=== PATIENT | female | born 1985 | race Caucasian/White ===

== ENCOUNTER 2023-11-30 19:56 | Emergency (ER) | payer OTHER, SELFPAY ==
--- NOTE | ~2023-11-30 | CT_ITS ---
EXAMINATION: CT HEAD WITHOUT CONTRAST CT FACIAL BONES WITHOUT CONTRAST CLINICAL INFORMATION: Left-sided headache. Left-sided facial pain. COMPARISON: None. TECHNIQUE: Imaging was performed from the skull base to vertex without intravenous administration of contrast. In addition, helical noncontrast CT imaging was acquired through the facial bones and source images were reviewed along with axial reconstructions and sagittal and coronal MPRs. [This CT examination was performed using dose optimization techniques as appropriate, variously including the following: *Automated exposure control *Adjustment of mA and/or kV according to patient size (this includes techniques or standardized protocols for targeted exams where dose is matched to indication/reason for exam; i.e. extremities or head) *Use of iterative reconstruction technique] DLP: 1087 mGy-cm FINDINGS: HEAD: No intracranial mass, hemorrhage, or midline shift is visualized. The ventricles and sulci are normal. No extra-axial collections are identified. FACIAL BONES: There is no evidence of an acute facial bone fracture. The paranasal sinuses are well aerated. The orbits are unremarkable in appearance. CT/CT facial bones wo IV con IMPRESSION: No acute intracranial process or discrete facial bone fracture. Electronically signed by: Darryl Walker MD 11/30/2023 10:07 PM EDT
--- NOTE | ~2023-11-30 | CT_ITS ---
EXAMINATION: CT HEAD WITHOUT CONTRAST CT FACIAL BONES WITHOUT CONTRAST CLINICAL INFORMATION: Left-sided headache. Left-sided facial pain. COMPARISON: None. TECHNIQUE: Imaging was performed from the skull base to vertex without intravenous administration of contrast. In addition, helical noncontrast CT imaging was acquired through the facial bones and source images were reviewed along with axial reconstructions and sagittal and coronal MPRs. [This CT examination was performed using dose optimization techniques as appropriate, variously including the following: *Automated exposure control *Adjustment of mA and/or kV according to patient size (this includes techniques or standardized protocols for targeted exams where dose is matched to indication/reason for exam; i.e. extremities or head) *Use of iterative reconstruction technique] DLP: 1087 mGy-cm FINDINGS: HEAD: No intracranial mass, hemorrhage, or midline shift is visualized. The ventricles and sulci are normal. No extra-axial collections are identified. FACIAL BONES: There is no evidence of an acute facial bone fracture. The paranasal sinuses are well aerated. The orbits are unremarkable in appearance. CT/CT head/brain wo IV con IMPRESSION: No acute intracranial process or discrete facial bone fracture. Electronically signed by: Darryl Walker MD 11/30/2023 10:07 PM EDT
[2023-11-30 20:01] VITALS: BP 152/104; PULSE 88; RESP 18; TEMP 36.6; O2SAT 97; BMI 35.4
--- NOTE | 2023-11-30 20:04 | ED_ITS ---
HPI - General Adult General Chief complaint: Headache Stated complaint: headache, migraine meds not working Time Seen by Provider: 11/30/23 21:47 Source: patient Mode of arrival: ambulatory Limitations: no limitations History of Present Illness ED Provider: Dr. Nahomi Trujillo HPI narrative: patient comes to the emergency room complaining of a migraine headache. Patient was diagnosed today. Patient's PCP prescribed the patient Imitrex. Patient took 1 tablet at 16:30, then a 2nd 1 at 18:30. Patient states that she did not get any relief. Patient states that she has left-sided headache, severe photophobia, nausea, no vomiting, and numbness tingling on the left side of the face. Patient denies any neurological deficits, no loss of strength. Related Data Previous Rx's ?Medication ?Instructions ?Recorded ketorolac 10 mg tablet 10 mg PO Q8H PRN pain #10 tabs 11/30/23 metoclopramide HCl 5 mg tablet 5 mg PO . t.i.d. PRN nausea and 11/30/23 vomiting #10 tabs Allergies Allergy/AdvReac Type Severity Reaction Status Date / Time From Phenergan AdvReac Unknown AGITATION, Uncoded 11/30/23 20:01 ANXIETY Review of Systems 2 Review of Systems: Constitutional : No Weight loss, No Fever, No Chills, No Night Sweats, No Fatigue, No Malaise ENT/Mouth : No Hearing loss, No Ear Pain, No Nasal Congestion, No Sinus Pain, No Hoarseness, No sore throat, No Rhinorrhea, No Swallowing Difficulty Eyes: complaining of photophobia,No Eye Pain, No Swelling, No Redness, No Foreign Body, No Discharge, No Vision Changes Cardiovascular : No Chest Pain, No SOB, No Dyspnea on Exertion, No Orthopnea, No Edema, No Palpitations Respiratory : No Cough, No Sputum, No Wheezing, No Smoke Exposure, No Dyspnea Gastrointestinal : complaining ofNausea, No Vomiting, No Diarrhea, No Constipation, No abdominal Pain, No Hematochezia, No Melena Genitourinary : no irregular bleeding, No Dysuria, No Urinary Frequency, No Hematuria, No Urinary Incontinence, No Urgency, No Flank Pain, No Urinary Flow Changes, No Hesitancy Musculoskeletal : No joint pain, No Myalgias, No Joint Swelling Skin : No Skin Lesions, No rash Neuro : No Weakness, No Numbness, complaining of left-sided paresthesias, No Loss of Consciousness, No Dizziness, Complaining of headache Psych : No Anxiety/Panic, No Depression, No SI/HI/AH/VH, No Social Issues, Heme/Lymph: No Bruising, No Bleeding,No Lymphadenopathy Endocrine : No Polyuria, No Polydipsia, No Temperature Intolerance [facility] Past Medical History Medical History (Updated 11/30/23 @ 23:00 by Nahomi Trujillo MD) Migraines Social History Social History Smoked in Last 30 Days: No Use of substances other than those prescribed or required for medical reasons: No Advance Directives: No Advance Directives Information Provided: No Do you have a plan to hurt others: No Plan Physical Exam ED Vital Signs: Vital Signs - 24 hr 11/30/23 20:01 Temperature 97.8 F Pulse Rate 88 Respiratory Rate 18 Blood Pressure 152/104 H Pulse Oximetry 97 Oxygen Delivery Method Room Air BMI result Body Mass Index 35.4 Const Other: Appearance: Alert. Oriented X3. No acute distress. looks uncomfortable Eyes: Pupils equal, round and reactive to light. patient has photophobia ENT: Pharynx normal. Neck: Normal inspection. Neck supple. No lymph nodes noted. No crepitus CVS: Normal heart rate and rhythm. Pulses normal. Normal S1 and S2 Respiratory: No respiratory distress. Breath sounds normal. No Wheezing. No rales Abdomen: Soft and nontender. No rigidity. No distention. Skin: Skin warm and dry. Normal skin color. Normal skin turgor. Extremities: No lower extremity edema. No Lacerations. No Rash Neuro: Oriented X 3. No motor deficit. No sensory deficit. Moving all extremities. No slurred speech. CN 2 through 12 grossly intact Psych: calm, cooperative, normal affect Course Course Course Narrative: This is a Rapid Medical Examination (RME) performed by Calvin Mosqueda PA-C in triage. Full HPI, ROS, assessment and treatment plan per primary provider in the Main ED. 38 yo female here for eval of left sided headache and left facial pain beginning yesterday morning. admits the left side of her face feels swollen. now has pain/ tingling down her left arm. was evaluated by PCP today today and prescribed imitrex. took first dose at 1630 and a second dose at 1830 without improvement. + no facial droop. No slurred speech. No pronator drift. ttp over left maxillary sinus. Plan: labs, viral serology, cts ordered Medications Administered Discontinued Medications Generic Name Dose Route Start Last Admin Trade Name Bonny PRN Reason Stop Dose Admin Diphenhydramine HCl 25 mg 11/30/23 21:51 11/30/23 22:18 Diphenhydramine Hcl 50 Mg/Ml Vial IVPUSH 11/30/23 21:52 25 mg ONCE ONE Administration Sodium Chloride 1,000 mls @ 999 mls/hr 11/30/23 21:51 11/30/23 22:17 Ns IVCONT 11/30/23 22:51 999 mls/hr .Q1H1M ONE Administration Ketorolac Tromethamine 30 mg 11/30/23 21:51 11/30/23 22:16 Ketorolac Tromethamine 30 Mg/Ml Vial IVPUSH 11/30/23 21:52 30 mg ONCE ONE Administration Metoclopramide HCl 10 mg 11/30/23 21:51 11/30/23 22:19 Metoclopramide Hcl 10 Mg/2 Ml Vial IVPUSH 11/30/23 21:52 10 mg ONCE ONE Administration Medical Decision Making Medical Decision Making [facility] Narrative: patient receiving IV fluids, ketorolac, metoclopramide, diphenhydramine. - NIH score is 0 - my interpretation of labs, normal hematology and chemistry, serology negative for influenza RSV and COVID - CT scans ordered from triage: normal head/ brain and facial bone CT - after the above-mentioned treatment, patient states that she feels much better. Patient requesting to be discharged home Differential Diagnosis Differential Diagnoses: The differential diagnosis associated with the presentation includes ( tension headache, migraine headache) Admission/Observation Consideration of admission/observation: Escalation of care including admission/observation considered ( given patient's severity of symptoms, observation was considered) Lab Data [facility] Lab Attestation statement: I reviewed the patient's lab results. 11/30/23 21:00 11/30/23 21:00 Labs: Lab Results 11/30/23 Range/Units 21:00 WBC 9.1 (4.8-10.8) X10*3/uL RBC 4.83 (4.20-5.50) X10*6/uL Hgb 13.8 (12.0-16.0) g/dl Hct 42.7 (37.0-47.0) % MCV 88.4 (80.0-98.0) fL MCH 28.6 (27.0-33.0) pg MCHC 32.3 (31.0-35.0) g/dl RDW 12.7 (11.0-16.0) % Plt Count 386 (160-400) X10*3/uL MPV 9.3 L (9.4-12.3) fL Immature Gran % (Auto) 0.2 (0.0-0.4) % Neut % (Auto) 51.5 (45-73) % Lymph % (Auto) 36.6 (20-40) % Ponce % (Auto) 5.8 (2-11) % Eos % (Auto) 5.0 H (0-4) % Baso % (Auto) 0.9 (0-2) % Lymph # (Auto) 3.3 (1.2-4.9) X10*3/uL Ponce # (Auto) 0.5 (0.1-1.2) X10*3/uL Eos # (Auto) 0.5 H (0.0-0.4) X10*3/uL Baso # (Auto) 0.1 (0.0-0.2) X10*3/uL Abs Immat Gran (auto) 0.02 (0.00-0.03) X10*3/uL Absolute Neuts (auto) 4.7 (2.0-8.3) x10*3/uL Absolute Nucleated RBC 0.000 (0.0-0.012) X10*3/uL Nucleated RBC % (auto) 0.0 (0.0-0.2) /100WBC Sodium 140 (135-145) mmol/L Potassium 3.8 (3.3-5.1) mmol/L Chloride 107 (96-108) mmol/L Carbon Dioxide 27 (22-29) mmol/L Anion Gap 10 L (12-20) BUN 10 (9-16) mg/dL Creatinine 0.78 (0.5-1.4) mg/dL Estim Creat Clear Calc 99.6 Estimated GFR > 60 Random Glucose 99 (60-115) mg/dL Calcium 9.8 (8.4-10.2) mg/dL Magnesium 2.1 (1.6-2.6) mg/dL Total Bilirubin 0.2 (0.0-1.0) mg/dL AST 34 H (5-31) U/L ALT 51 H (0-31) U/L Alkaline Phosphatase 137 H (39-117) U/L Total Protein 7.5 (6.5-8.0) g/dL Albumin 4.0 (3.5-5.0) g/dL Beta HCG, Quant < 2 mIU/mL Influenza Type A (PCR) NEGATIVE (Negative) Influenza Type B (PCR) NEGATIVE (Negative) RSV RNA Qual (PCR) NEGATIVE (Negative) SARS-CoV-2 RNA (RT-PCR) NEGATIVE (Negative) Independent Interpretation I performed an independent interpretation of an: CT Scan Radiology Impression Discussion of test interpretation with radiology: I have reviewed the radiologist's reading. Radiologist Impression: HEAD: No intracranial mass, hemorrhage, or midline shift is visualized. The ventricles and sulci are normal. No extra-axial collections are identified. FACIAL BONES: There is no evidence of an acute facial bone fracture. The paranasal sinuses are well aerated. The orbits are unremarkable in appearance. CT/CT head/brain wo IV con IMPRESSION: No acute intracranial process or discrete facial bone fracture. Critical Care Time Critical Care Time Critical Care Time: Yes Total Critical Care Time: 30 Attestation: I have personally provided critical care time. Time includes review of lab data, radiology results, discussion with consultants, and monitoring for potential decompensation. Intervention performed as documented. Discharge Plan Discharge Clinical Impression: Migraine Patient Disposition: Home, Self-Care Instructions: Migraine Headache (ED) Additional Instructions: Please follow-up with your primary care physician tomorrow. If you have any worsening or new symptoms, please return to the emergency room or call 911 Prescriptions: New ketorolac 10 mg tablet 10 mg PO Q8H PRN (Reason: pain) Qty: 10 0RF Rx Instructions: maximum total duration of 5 days from all oral, intranasal, or parenteral formulations metoclopramide HCl 5 mg tablet 5 mg PO . t.i.d. PRN (Reason: nausea and vomiting) Qty: 10 0RF Rx Instructions: take together with ketorolac p.r.n. migraine Stand Alone Forms: Work/School Release Print Language: Kazakh
[2023-11-30 21:05] LABS: MANUAL DIFF FLAG NO
[2023-11-30 21:15] LABS: Basophils Absolute Auto 0.1 X10*3/uL (0.0-0.2); Basophils Percent Auto 0.9 % (0-2); Eosinophils Absolute Auto 0.5 X10*3/uL (0.0-0.4); Hematocrit 42.7 % (37.0-47.0); Hemoglobin 13.8 g/dl (12.0-16.0); Imm Gran Abs Auto 0.02 X10*3/uL (0.00-0.03); Imm Gran Pct Auto 0.2 % (0.0-0.4); Lymphocytes Absolute Auto 3.3 X10*3/uL (1.2-4.9); Lymphocytes Percent Auto 36.6 % (20-40); Mean Corpuscular HGB Conc 32.3 g/dl (31.0-35.0); Mean Corpuscular Hemoglobin 28.6 pg (27.0-33.0); Mean Corpuscular Volume 88.4 fL (80.0-98.0); Mean Platelet Volume 9.3 fL (9.4-12.3); Monocytes Absolute Auto 0.5 X10*3/uL (0.1-1.2); Monocytes Percent Auto 5.8 % (2-11); Neutrophils Absolute Auto 4.7 x10*3/uL (2.0-8.3); Neutrophils Percent Auto 51.5 % (45-73); Platelet Count 386 X10*3/uL (160-400); Red Blood Count 4.83 X10*6/uL (4.20-5.50); Red Cell Distribution Width 12.7 % (11.0-16.0); White Blood Count 9.1 X10*3/uL (4.8-10.8)
[2023-11-30 21:30] LABS: Alanine Aminotransferase 51 U/L (0-31); Alkaline Phosphatase 137 U/L (39-117); Anion Gap 10 (12-20); Aspartate Amino Transferase 34 U/L (5-31); Bilirubin Total 0.2 mg/dL (0.0-1.0); Blood Urea Nitrogen 10 mg/dL (9-16); Calcium 9.8 mg/dL (8.4-10.2); Carbon Dioxide 27 mmol/L (22-29); Chloride 107 mmol/L (96-108); Creatinine Clr Calc Pharmacy 99.6; Estimated Glomerular Filt Rate > 60; Glucose Random 99 mg/dL (60-115); Magnesium 2.1 mg/dL (1.6-2.6); Potassium 3.8 mmol/L (3.3-5.1); Sodium 140 mmol/L (135-145); Total Protein 7.5 g/dL (6.5-8.0)
[2023-11-30 21:38] LABS: HCG Quantitative < 2 mIU/mL
--- NOTE | 2023-11-30 21:38 | PC.NURSE ---
pt from nicobycherelle care of pt at this time
[2023-11-30 21:48] LABS: Influenza A PCR NEGATIVE (Negative); Influenza B PCR NEGATIVE (Negative); Resp Syncy Virus RNA Qual PCR NEGATIVE (Negative); SARS COV2 PCR INHOUSE NEGATIVE (Negative)
[2023-11-30] MEDS: Ketorolac Tromethamine 30 MG/ML VIAL IVPUSH (22:16)
[2023-11-30] MEDS: 0.9 % Sodium Chloride 1,000 ML 999 ML IVCONT (22:17)
[2023-11-30] MEDS: diphenhydrAMINE HCL 50 MG/ML VIAL 25 MG IVPUSH (22:18)
[2023-11-30] MEDS: Metoclopramide HCl 10 MG/2 ML VIAL IVPUSH (22:19)
--- NOTE | 2023-11-30 23:05 | PC.NURSE ---
pt feeling better, pt up and amb slowly and steadily to the bathroom, with family member
[2023-11-30 23:12] VITALS: BP 128/83; PULSE 76; RESP 16; TEMP 37.1; O2SAT 97
== END 2023-11-30 23:13 | disposition home or self-care (01) ==
PROVIDERS: Physician Assistant Medical; Emergency Provider Emergency Medicine
DX: G43.909 Migraine, unspecified, not intractable, without status migrainosus (principal); H53.142 Visual discomfort, left eye; R11.0 Nausea; R20.2 Paresthesia of skin; Z79.899 Other long term (current) drug therapy; Z03.818 Encounter for observation for suspected exposure to other biological agents ruled out
CPT/HCPCS: 0241U; 36415; 70450; 70486; 80053; 83735; 84702; 85025; 96361; 96374; 96375; 99284; J1200; J1885; J2765

== ENCOUNTER 2025-01-24 13:56 | Outpatient (AMB) | payer OTHER, SELFPAY ==
--- NOTE | 2025-01-24 13:59 | MHC.PC.OV ---
Vital Signs 01/24/25 14:04 Height 5 ft 3.58 in Weight 201 lb 2 oz BMI 35.0 BP 152/86 H Blood Pressure Location Rt brachial Position Sitting Respiration 16 Pulse 96 Pulse Source Pulse Oximeter Temp 98.4 F Temp Source Oral Pulse Oximetry (%) 98 Oxygen Delivery Method Room Air Intake Visit Reasons: blood pressure, bump on left arm [employer] Administrative Technician Required: No Accompanied by: Self / Same As Patient Allergies From Phenergan Adverse Reaction (Unknown, Uncoded 11/30/23 20:01) AGITATION, ANXIETY Medication List - Last Reconciled 01/24/25 by Demian Noriega MD amoxicillin-pot clavulanate 875-125 mg 1 tab PO BID ketorolac 10 mg PO Q8H PRN lorazepam mg PO metoclopramide HCl 5 mg PO . t.i.d. PRN metoprolol succinate ER 25 mg PO DAILY prednisone 40 mg PO DAILY Tobacco use date assessed: 01/24/25 Dental Screening Dental Screen Date: 01/24/25 Did you have a dental visit in the last 12 months?: No Did you have a dental problem in the last 6 months where you did not have access to dental care?: No Was dental information given to patient?: Patient has dentist HPI HPI Comments History of Present Illness Details History of Present Illness The patient is a 39-year-old female presenting with concerns about hypertension and a lump on the left arm. Essential Hypertension: The patient has a history of hypertension, which has been monitored at home with readings sometimes reaching 140/106 mmHg. She is currently taking metoprolol, which was prescribed for both hypertension and migraine management. There is a family history of hypertension, with her father having experienced a stroke. Lump on Left Arm: The patient reports a recurrent lump on her left arm that is painful and causes discomfort, particularly when the arm is not kept straight. The lump has been present intermittently, with the most recent episode causing significant pain and concern. She has been using Tylenol for pain relief and has expressed a preference to avoid narcotics. Carpal Tunnel Syndrome: The patient has a history of carpal tunnel syndrome in both hands, which she suspects may be related to her current arm symptoms. Anxiety: The patient experiences anxiety, which she believes may be contributing to her elevated blood pressure readings. Medications: - Metoprolol: Taken for hypertension and migraine management - Tylenol: Used for pain relief related to the lump on the left arm Family History: - Father: History of hypertension, suspected stroke Diagnostic Results: - EKG: Normal results - Heart monitor: Normal results Past Medical History - Hypertension - Carpal Tunnel Syndrome Health Maintenance [facility] Medical History (Updated 01/24/25 @ 14:29 by Demian Noriega MD) Pain, joint, forearm Migraines Family History (Updated 01/24/25 @ 14:09 by Sean Munson MA) Father High blood pressure Mother High blood pressure Diabetes Social History Housing: House Patient Tobacco Use Status: Never used Tobacco service: No Current occupational status: employed Cognitive needs: No Hearing needs: No Vision needs: Yes (rx glasses) Questionnaire PHQ-9 Over the last 2 weeks, how often have you been bothered by any of the following problems? 1. Little interest or pleasure in doing things: not at all 2. Feeling down, depressed, or hopeless: not at all 3. Trouble falling or staying asleep, or sleeping too much: not at all 4. Feeling tired or having little energy: not at all 5. Poor appetite or overeating: not at all 6. Feeling bad about yourself - or that you are a failure or have let yourself or your family down: not at all 7. Trouble concentrating on things, such as reading the newspaper or watching television: not at all 8. Moving or speaking so slowly that other people could have noticed. Or the opposite - being so fidgety or restless that you have been moving around a lot more than usual: not at all 9. Thoughts that you would be better off or of hurting yourself in some way: not at all Total score: 0 Depression Screening Interpretation: Negative Depression Screening Done: Yes Source: Developed by Drs. Drew Flores, Anu Chapman, Roni Armando and colleagues, with an educational jose guadalupe from [employer]. Thrive Questionnaire Date Thrive assessed: 01/24/25 I am a: Patient What is your living situation today?: I have a steady place to live Within the past 12 months, did the food you bought not last and you didn't have the money to get more?: Never true Within the past 12 months, did you worry whether your food would run out before you got money to buy more?: Never true Do you have trouble paying for medicines?: No Do you have trouble getting transportation to medical appointments?: No Do you have trouble paying your heating and electricity bill?: No Do you have trouble taking care of your child, family member or friend?: No Do you have trouble with day-to-day activities such as bathing, preparing meals, shopping, managing finances, etc.?: No Are you currently unemployed and looking for a job?: No Are you interested in more education?: No Please select the resources that you would like help with: None Currently or been in a relationship where the following occur: No concerns reported THRIVE Score: 0 AUDIT C Alcohol Use Questionnaire (AUDIT-C) 1. How often do you have a drink containing alcohol?: Monthly or less 2. How many drinks containing alcohol do you have on a typical day when you are drinking?: 1 or 2 3. How often do you have six or more drinks on one occasion?: Never Total Score: 1 LEATHA-7 AMB Questionnaire LEATHA-7 Date LEATHA - 7 assessed: 01/24/25 Feeling nervous, anxious, or on edge: 0 = Not at all Not being able to stop or control worryin = Not at all Worrying too much about different things: 0 = Not at all Trouble relaxin = Not at all Being so restless that it is hard to sit still: 0 = Not at all Becoming easily annoyed or irritable: 0 = Not at all Feeling afraid as if something awful might happen: 0 = Not at all Total LEATHA-7 score (0-4 normal; 5-9 mild; 10-14 moderate; 15-21 severe): 0 Source: Developed by Drs. Drew Flores, Anu Chapman, Roni Armando and colleagues, with an educational jose guadalupe from [employer]. Review of Systems Narrative Review of Systems - Musculoskeletal: Reports intermittent, painful lump on the left arm - Cardiovascular: Reports elevated blood pressure readings at home - Neurological: Reports history of carpal tunnel syndrome - Psychiatric: Reports anxiety related to stress and family history 10-point ROS reviewed and negative except as noted in HPI Physical exam (Primary Care) Vital Signs: Last Vital Signs Temp 98.4 F 01/24/25 14:04 Pulse 96 01/24/25 14:04 Resp 16 01/24/25 14:04 BP 152/86 H 01/24/25 14:04 Pulse Ox 98 01/24/25 14:04 Oxygen Delivery Method Room Air 01/24/25 14:04 BMI result Body Mass Index 35.0 Tobacco/Smoking Status: Tobacco use Status Tobacco use date assessed 01/24/25 01/24/25 14:13 Patient Tobacco Use Status Never used Tobacco 01/24/25 14:13 PHQ-9: PHQ-9 Score PHQ-9: Total score 0 01/24/25 14:13 Depression Screening Interpretation: Negative Thrive Assessment: Date of Thrive Assessment Date Thrive assessed 01/24/25 01/24/25 14:13 Currently or been in a relationship where the following occur: No concerns reported Coding Level of Care Code New Pt Level 4 (21325) Diagnoses Pain, joint, forearm M25.539 Essential hypertension I10 Soft tissue injury T14.90XA Carpal tunnel syndrome G56.00 Assessment & Plan Assessment & Plan (1) Pain, joint, forearm: Code(s): M25.539 - Pain in unspecified wrist Category: Medical (2) Essential hypertension: Code(s): I10 - Essential (primary) hypertension (3) Soft tissue injury: Code(s): T14.90XA - Injury, unspecified, initial encounter (4) Carpal tunnel syndrome: Code(s): G56.00 - Carpal tunnel syndrome, unspecified upper limb Plan Consent Patient was informed and verbally consented to the use of an ambient scribe for clinic note documentation during this visit. Plan 1. Essential Hypertension - Continue monitoring blood pressure at home, recording readings twice daily. - Discuss potential changes in antihypertensive medication at follow-up appointment. 2. Lump On Left Arm - Apply diclofenac gel topically for pain relief. - Avoid narcotic pain medications due to patient preference. 3. Carpal Tunnel Syndrome - Consider further evaluation if symptoms persist or worsen. 4. Anxiety - Address anxiety management strategies in future visits. Discussion Notes I discussed with the patient the management of her hypertension, emphasizing the importance of regular monitoring and potential medication adjustments. We also addressed the lump on her left arm, recommending topical diclofenac gel for pain relief. I advised against the use of narcotics due to her preference and discussed the role of anxiety in her blood pressure management. Follow-up was recommended to reassess her condition and adjust treatment as necessary. Patient Instructions - Monitor blood pressure at home twice daily and record the best reading. - Apply diclofenac gel to the left arm as needed for pain relief. - Avoid using the left arm for blood pressure measurements due to pain. - Schedule a follow-up appointment to discuss blood pressure management and any ongoing symptoms. Medical Decision Making In managing this patient, I considered her history of hypertension and the presence of a painful lump on her left arm. The decision to use diclofenac gel was based on the need for a non-narcotic pain relief option. Monitoring her blood pressure at home is crucial for assessing the effectiveness of her current medication regimen. Anxiety was identified as a contributing factor to her elevated blood pressure, and future visits will address this aspect further. The goal is to achieve better blood pressure control and alleviate her arm pain without the use of narcotics. Total time spent caring for the patient today was 30 minutes. This includes time spent before the visit reviewing the chart, time spent documenting, and time spent reviewing laboratory results, diagnostic imaging, medications, performing a medically necessary evaluation, counseling on diagnoses, care coordination,
[2025-01-24 14:04] VITALS: BP 152/86; PULSE 96; RESP 16; TEMP 36.9; O2SAT 98; BMI 35.0
--- OUTSIDE RECORDS SUMMARY | 2025-01-24 15:58 | XMS_ITS | Clinical Summary ---
Author Organization [facility] Address [address] [place] [address] Phone Care Team Providers Care Darklight Inspector Name Role Phone Portillo Lancaster Primary Care Provider [phone] Allergies Active Allergy Reactions Criticality Noted Date Comments Phenergan Dm Palpitations 06/13/2013 Promethazine 08/31/2024 Shrimp Itching 09/29/2024 Medications cholecalciferol (VITAMIN D-3) 50 mcg (2,000 unit) tabletIndicatio ns:Vitamin D deficiency Take 1 tablet (2,000 Units total) by mouth 1 (one) time each day. 90 tablet 1 09/30/2024 5 Active metoprolol succinate (TOPROL-XL) 25 mg 24 hr tablet Take 1 tablet (25 mg total) by mouth 1 (one) time each day. Do not crush or chew. 30 each 5 10/10/2024 6 Active ibuprofen (ADVIL,MOTRIN) 600 mg tablet Take 1 tablet (600 mg total) by mouth every 6 (six) hours if needed for mild pain (for pain) for up to 10 days. 30 tablet 01/13/2025 5 Active Problems Problem Noted Date Diagnosed Date Vitamin D deficiency 09/30/2024 Assessment & Plan (09/30/2024 4:28 PM EDT): She is not taking vitamin D daily. Advised to start vitamin D 2000 units daily. Labs done in April showed low vitamin D level Orders: cholecalciferol (VITAMIN D-3) 50 mcg (2,000 unit) tablet; Take 1 tablet (2,000 Units total) by mouth 1 (one) time each day. Migraine without aura and wi thout status migrainosus, not intractable 09/30/2024 Assessment & Plan (09/30/2024 4:28 PM EDT): She will resume abortive therapy with Imitrex as needed. She will also continue on Excedrin as needed. Will trial Topamax 25 mg nightly for migraine headache prophylaxis. Counseled on the possible side effects of the medication. She is referred to neurology MRI of the brain done in February is as above and within normal range. Orders: Ambulatory referral to Neurology; Future topiramate (TOPAMAX) 25 mg tablet; Take 1 tablet (25 mg total) by mouth at bedtime. SUMAtriptan (IMITREX) 50 mg tablet; Take 1 tablet (50 mg total) by mouth 1 (one) time if needed for migraine. Alkaline phosphatase elevation 01/31/2024 Nephrolithiasis 01/31/2024 Vertigo 04/20/2016 Generalized headaches 04/20/2015 Encounters Date Type Department Care Team Description 01/15/2025 Telephone Adult Medicine [address] [address] Portillo Lancaster PA 01/13/2025 9:46 PM EDT - 01/13/2025 10:54 PM EDT Emergency [facility] Emergency [address] [place] [address] Yg Rod MD Chest wall pain (Primary Dx) Discharge Disposition: Home or Self Care from Last 3 Months Immunizations Immunization Administration Dates Next Due DTP 06/08/1989, 8,08/06/1985,1985,1984 IPV Inactivated polio (Ipol) 6wks and older 06/08/1989,06/17/1987,08/06/1985,1985,1984 Influenza Quadravalent, MDCK , 0.5ml, preservative free (Flucelvax) 6mo and older 02/03/2019 Influenza Quadravalent, MDCK , 0.5ml, with preservative (Flucelvax) 6mo and older 02/21/2020,01/07/2018 Influenza Quadrivalent, 0.5m l, preservative free (Fluarix; FluLaval; Fluzone) ages 6mo and older (Afluria) 3yo and older 02/21/2020 Influenza trivalent, 0.5mL, preservative free (Fluarix; FluLaval; Fluzone) ages 6mo and older (Afluria) 3 years and older 01/24/2024 MMR, measles mumps and rubel la Live (Priorix; M-M-R II) 12mo and older 12/12/1996,01/01/1986 Td Tetanus diptheria (Tdvax) 7yo and older 06/29/1999 Tdap Tetanus diptheria acell ular pertussis (Boostrix; Adacel) 7yo and older 10/01/2012 Surgical History Surgery Date Site/Laterality Comments TUBAL LIGATION 04/03/2012 PROCEDURE: HISTORICAL TUBAL LIGATION APPENDECTOMY 04/03/2006 PROCEDURE: HISTORICAL APPENDECTOMY CHOLECYSTECTOMY 08/04/2022 PROCEDURE: HISTORICAL CHOLECYSTECTOMY; COMMENT: sobral Medical History Medical History Date Comments Alkaline phosphatase elevation D X:Alkaline phosphatase elevation Nephrolithiasis DX:Nephrolithias is History of endoscopy 02/28/2017 DX:History of endoscopy; COMMENT: dr arellano Family History Medical History Relation Name Comments Heart attack Father Frank Cochran Hypertension Father Frank Leoa Asthma Mother Jina Saurav sisters x2 Bipolar disorder Mother Jina Saurav Glaucoma Mother Jina Saurav Hypertension Mother Jina Saurav Hypertension Sister Marsha Cochran Seizures Son Derex Van Relation Name Status Comments Father Vishnu Cochran Mother Jina Saurav Sister Marsha Cochran Son Derex Vna Social History Tobacco Use Types Packs/Day Years Used Date Smoking Tobacco: Never Smokeless Tobacco: Never Tobacco Cessation:Counseling Given: Not Answered Alcohol Use Standard Drinks/Week Comments Yes 0 (1 standard drink = 0.6 oz pur e alcohol) Housing Instability Answer Date Recorde d Are you worried that in the next 2 months you may not have stable housing? No 09/30/2024 Food Access & Nutrition Answer Date Rec orded Do you have access to a vari ety of food including fruits and vegetables? Yes 09/30/2024 Access to Healthcare Answer Date Record ed Within the last 3 months, ho w many times did you visit the emergency department for your medical care? 0 09/30/2024 Health Literacy Answer Date Recorded How often do you need to hav e someone help you when you read instructions, pamphlets, or other written material from your doctor or pharmacy? Never 09/30/2024 Caregiver: How often do you need to have someone help you when you read instructions, pamphlets, or other written material from your doctor or pharmacy? Not on file 09/30/2024 Financial Risk Answer Date Recorded How hard is it for you to pa y for the very basics like food, housing, medical care, and air conditioning / heating? Not very hard 09/30/2024 Transportation Answer Date Recorded Has the lack of transportati on kept you from meetings, work, or from getting things needed for daily living? No Has the lack of transportati on kept you from medical appointments or from getting medications? No 09/30/2024 Social Isolation Answer Date Recorded How often do you feel lonely or isolated from th ose around you? Never 09/30/2024 Food Risk Answer Date Recorded Within the past 12 months we worried whether our food would run out before we got money to buy more. Never true 09/30/2024 Within the past 12 months th e food we bought just didn't last and we didn't have money to get more. Never true 09/30/2024 Dependent Care Answer Date Recorded Do you need help finding or paying for care for your loved ones. For example, child care center administrator or elderly care for an older adult? No 09/30/2024 Education Answer Date Recorded Do you think completing more education or training, like finishing a GED, going to college, or learning a trade, would be helpful for you? Yes 09/30/2024 Employment and Income Answer Date Recor ded During the last four weeks, have you been actively looking for work? No 09/30/2024 Living Situation Answer Date Recorded What is your living situation? 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 Para Term AB IAB SAB Ectopic Multiple Livin g Live Births 5 4 4 3 4 Date Outcome GA Total Labor Labor/2nd/3rd Weight Sex Type Anes PTL Norma A1 A5 Name Clin Term Vag-S pont Living Term Vag-S pont Living Term Vag-S pont Living Term Vag-S pont Last Filed Vital Signs Vital Sign Reading Time Taken Comments Blood Pressure 138/100 01/13/2025 9:24 PM EDT Pulse 74 01/13/2025 9:24 PM EDT Temperature 36.7 C (98.1 F) 01/13/2025 9:24 PM EDT Respiratory Rate 18 01/13/2025 9:24 PM EDT Oxygen Saturation 100% 01/13/2025 9:24 PM EDT Inhaled Oxygen Concentration - - Weight 88 kg (194 lb) 01/13/2025 4:57 PM EDT Height 157.5 cm (5' 2 ) 01/13/2025 4:57 PM EDT Body Mass Index 35.48 01/13/2025 4:57 PM EDT Plan of Treatment Upcoming Encounters Date Type Department Care Team (Late st Contact Info) Description 01/30/2025 2:00 PM EDT Office Visit Adult Medicine [facility] [address], [place] [phone] Garry Kilpatrick MD [address], [place] Health Maintenance Due Date Last Done Comments Breast Cancer Screening 1984 Hepatitis B Vaccines (1 of 3 - 19+ 3-dose series) 08/23/2003 HPV Vaccines (1 - 3-dose SCDM series) 08/23/2011 HIV Screening 03/12/2022 Hepatitis C Screening 03/12/2022 COVID-19 Vaccine ( season) 2024 07/02/2020, 06/11/2020 Influenza Vaccine (#1) 2024 , 02/21/2020, 02/21/2020, Additional history exists Cervical Cancer Screening: Pap Smear 08/31/2025 08/31/2022 Social Influencers of Health Screening 09/30/2025 09/30/2024 Cholesterol Screening (Lipid Panel) 10/18/2028 10/19/2023 RSV Immunization Adult Patients (1 - 1-dose 75+ series) 08/23/2059 IPV Vaccines Completed 06/08/1989, 06/01, 08/06/1985, Additional history exists MMR Vaccines Completed 12/12/1996, 01/01/1986 DTaP,Tdap,and Td Vaccines Discontinued 2012, 06/29/1999, 06/08/1989, Additional history exists Depression Screening Completed 09/30/2024 HIB Vaccines Aged Out No longer eligi ble based on patient's age to complete this topic Hepatitis A Vaccines Aged Out No long er eligible based on patient's age to complete this topic Meningococcal ACWY Vaccine Aged Out N o longer eligible based on patient's age to complete this topic Meningococcal B Vaccine Aged Out No l onger eligible based on patient's age to complete this topic Pneumococcal Vaccine: Pediatrics (0 to 5 Years) and At-Risk Patients (6 to 49 Years) Aged Out No longer eligible based on patient's age to complete this topic RSV Immunization Patients Under 20 months Aged Out No longer eligible based on patient's age to complete this topic Varicella Vaccines Aged Out No longer eligible based on patient's age to complete this topic Procedures Procedure Name Priority Date/Time Associated Diagnosis Comments ECG ANNOTATED 01/14/2025 TROPONIN I HIGH SENSITIVITY Timed 01/13/2025 9:52 PM EDT XR CHEST 2 VIEWS STAT 01/13/2025 9:36 PM EDT HCG, SERUM, QUALITATIVE STAT 01/13/2025 5:47 PM EDT CBC WITH AUTO DIFFERENTIAL STAT 01/13/2025 5:47 PM EDT B-TYPE NATRIURETIC PEPTIDE STAT 01/13/2025 5:47 PM EDT MAGNESIUM STAT 01/13/2025 5:47 PM EDT LIPASE STAT 01/13/2025 5:47 PM EDT COMPREHENSIVE METABOLIC PANEL STAT 01/13/2025 5:47 PM EDT CBC AND DIFFERENTIAL STAT 01/13/2025 5:47 PM EDT TROPONIN I HIGH SENSITIVITY Timed 01/13/2025 5:47 PM EDT ECG 12-LEAD STAT 01/13/2025 4:54 PM EDT PAP SMEAR Routine 08/31/2022 from Last 3 Months or Most Recently Relevant to Health Maintenance Results * ECG-Annotated (01/14/2025) us Provider Onbase ECG ORDERABLES Final Result * Troponin I high sensitivity (01/13/2025 9:52 PM EDT) Only the most recent of2 resultswithin the time period is included. High Sensitivity Troponin I 6 <=54 ng/L LAB CHEMISTRY METHOD 01/13/2025 10:43 PM EDT [facility] Blood Venous blood specimen / Unknown Venipuncture / Unknown 01/13/2025 9:52 PM EDT 01/13/2025 10:03 PM EDT Narrative [facility] - 01/13/2025 10:43 PM EDT High levels of biotin in samples may falsely decrease hsTroponin values. Use caution when interpreting hsTroponin results in patients taking biotin who exhibit renal impairment (eGFR <60) or in patients taking more than 20 mg/day of biotin. us Yg Rod MD LAB BLOOD ORDERABLES Final Result [facility] [address] [place] [address], [place] [phone] * XR Chest 2 Views (01/13/2025 9:36 PM EDT) Anatomical Region Laterality Modality Body Radiographic Venita ging 01/14/2025 8:54 AM EDT Impressions 01/14/2025 8:55 AM EDT Impression: Normal chest. Telerad PA ([id number]) -------- FINAL REPORT -------- Dictated By: Chanda Apodaca Dictated Date: 01/14/2025 08:54 ET Assigned Physician: Chanda Apodaca Reviewed and Electronically Signed By: Chanda Apodaca Signed Date: 01/14/2025 08:55 ET Workstation ID: [id number] Transcribed By: Self Edit Transcribed Date: 01/14/2025 08:54 ET Narrative 01/14/2025 8:55 AM EDT History: Chest pain. Comparison: 10/07/24 Findings: PA and lateral views. The cardiomediastinal silhouette, hilar contours and pulmonary vascularity are within normal limits. The lungs are clear. The costophrenic angles are sharp. Bones and soft tissues are unremarkable. Cholecystectomy clips are noted. Procedure Note Chanda Apodaca MD - 01/14/2025 History: Chest pain. Comparison: 10/07/24 Findings: PA and lateral views. The cardiomediastinal silhouette, hilar contours andpulmonary vascularity are within normal limits. The lungs are clear. Thecostophrenic angles are sharp. Bones and soft tissues are unremarkable. Cholecystectomy clips arenoted. IMPRESSION: Impression: Normal chest. Telerad PA ([id number]) -------- FINAL REPORT -------- Dictated By: Chanda Apodaca Dictated Date: 01/14/2025 08:54 ET Assigned Physician: Chanda Apodaca Reviewed and Electronically Signed By: Chanda Apodaca Signed Date: 01/14/2025 08:55 ET Workstation ID: [id number] Transcribed By: Self Edit Transcribed Date: 01/14/2025 08:54 ET us Yg Rod MD IMG XR PROCEDURES Final Res ult * (ABNORMAL) CBC auto differential (01/13/2025 5:47 PM EDT) [facility] WBC 9.2 4.8 - 10.8 K/mcL LAB HEMETOLOGY METHOD 01/13/2025 6:34 PM EDT [facility] RBC 4.70 3.80 - 4.80 M/mcL LAB HEMETOLOGY METHOD 01/13/2025 6:34 PM EDT [facility] Hemoglobin 13.6 11.5 - 16.0 g/dL LAB HEMETOLOGY METHOD 01/13/2025 6:34 PM EDT [facility] Hematocrit 42.8 35.0 - 47.0 % LAB HEMETOLOGY METHOD 01/13/2025 6:34 PM EDT [facility] MCV 90.5 79.0 - 98.0 FL LAB HEMETOLOGY METHOD 01/13/2025 6:34 PM EDT [facility] MCH 28.8 27.0 - 32.0 pcg LAB HEMETOLOGY METHOD 01/13/2025 6:34 PM EDT [facility] MCHC 31.8(L) 32.0 - 37.0 g/dL LAB HEMETOLOGY METHOD 01/13/2025 6:34 PM EDT [facility] RDW 12.9 11.0 - 15.0 % LAB HEMETOLOGY METHOD 01/13/2025 6:34 PM EDT [facility] Platelets 388 130 - 400 K/mcL LAB HEMETOLOGY METHOD 01/13/2025 6:34 PM EDT [facility] MPV 9.4 7.0 - 11.0 FL LAB HEMETOLOGY METHOD 01/13/2025 6:34 PM EDT [facility] NRBC 0.0 <1.0 % LAB HEMETOLOGY METHOD 01/13/2025 6:34 PM EDT [facility] NRBC Absolute 0.00 <0.10 K/mcL LAB HEMETOLOGY METHOD 01/13/2025 6:34 PM EDT [facility] Neutrophils Relative 55.4 % LAB HEMETOLOGY METHOD 01/13/2025 6:34 PM EDT [facility] Lymphocytes Relative 34.7 % LAB HEMETOLOGY METHOD 01/13/2025 6:34 PM EDT [facility] Monocytes Relative 6.9 % LAB HEMETOLOGY METHOD 01/13/2025 6:34 PM EDT [facility] Eosinophils Relative 2.0 % LAB HEMETOLOGY METHOD 01/13/2025 6:34 PM [facility] Basophils Relative 0.7 % LAB HEMETOLOGY METHOD 01/13/2025 6:34 PM [facility] Immature Granulocytes Relative 0.3 % LAB HEMETOLOGY METHOD 01/13/2025 6:34 PM [facility] Neutrophils Absolute 5.10 1.50 - 7.00 K/mcL LAB HEMETOLOGY METHOD 01/13/2025 6:34 PM EDT [facility] Lymphocytes Absolute 3.19 1.00 - 5.00 K/mcL LAB HEMETOLOGY METHOD 01/13/2025 6:34 PM T [facility] Monocytes Absolute 0.63 0.20 - 1.00 K/mcL LAB HEMETOLOGY METHOD 01/13/2025 6:34 PM EDT [facility] Eosinophils Absolute 0.18 0.00 - 0.50 K/mcL LAB [facility]EM[facility]OLOGY [facility] Bas[facility] Absolute 0.06 0.00 - 0.20 K/mcL LAB HEMETOLOGY METHOD 01/13/2025 6:34 PM EDT [facility] Immature Granulocytes Absolute 0.03 0.00 - 0.03 K/mcL LAB HEMETOLOGY METHOD 01/13/2025 6:34 PM EDT [facility] Blood Venous blood specimen / Unknown Venipuncture / Unknown 01/13/2025 5:47 PM EDT 01/13/2025 6:28 PM EDT Yg Rod MD LAB BLOOD ORDERABLES Final Result [facility] [address] [place] [address], [place] [phone] * hCG, serum, qualitative (01/13/2025 5:47 PM EDT) Pathologist [facility] hCG Qual Negative Negative 01/13/2025 7:06 PM EDT [facility] Blood Venous blood specimen / Unknown Venipuncture / Unknown 01/13/2025 5:47 PM EDT 01/13/2025 6:28 PM EDT Yg Rod MD LAB BLOOD ORDERABLES Final Result Performing Organization Address [facility]/ZIP Co de Phone Number [facility] [address] [place] [address], [place] [phone] * B-type natriuretic peptide (01/13/2025 5:47 PM EDT) Pathologist [facility] BNP 2 <=100 pcg/mL LAB CHEMISTRY METHOD 01/13/2025 7:06 PM EDT [facility] Blood Venous blood specimen / Unknown Venipuncture / Unknown 01/13/2025 5:47 PM EDT 01/13/2025 6:28 PM EDT us Yg Rod MD LAB BLOOD ORDERABLES Final Result [facility] [address] [place] [address], [place] [phone] * Magnesium (01/13/2025 5:47 PM EDT) Pathologist [facility] Magnesium 2.0 1.9 - 2.6 mg/dL LAB CHEMISTRY METHOD 01/13/2025 6:57 PM EDT [facility] Blood Venous blood specimen / Unknown Venipuncture / Unknown 01/13/2025 5:47 PM EDT 01/13/2025 6:28 PM EDT Yg Rod MD LAB BLOOD ORDERABLES Final Result [facility] [address] [place] [address], [place] [phone] * Lipase (01/13/2025 5:47 PM EDT) Pathologist [facility] Lipase 58 13 - 75 unit/L LAB CHEMISTRY METHOD 01/13/2025 6:57 PM EDT [facility] Blood Venous blood specimen / Unknown Venipuncture / Unknown 01/13/2025 5:47 PM EDT 01/13/2025 6:28 PM EDT Yg Rod MD LAB BLOOD ORDERABLES Final Result Performing Organization Address City/[facility]/ZIP Co de Phone Number [facility] [address] [place] [address], [place] [phone] * (ABNORMAL) Comprehensive metabolic panel (01/13/2025 5:47 PM EDT) Pathologist [facility] Sodium 140 133 - 145 mmol/L LAB CHEMISTRY METHOD 01/13/2025 6:57 PM EDT [facility] Potassium 4.4 3.5 - 5.5 mmol/L LAB CHEMISTRY METHOD 01/13/2025 6:57 PM EDT [facility] Chloride 106 96 - 110 mmol/L LAB CHEMISTRY METHOD 01/13/2025 6:57 PM [facility] CO2 25 21 - 32 mmol/L LAB CHEMISTRY METHOD 01/13/2025 6:57 PM [facility] Anion Gap 9 3 - 11 LAB CHEMISTRY METHOD 01/13/2025 6:57 PM [facility] Glucose 90 70 - 100 mg/dL LAB CHEMISTRY METHOD 01/13/2025 6:57 PM [facility] BUN 10 5 - 25 mg/dL LAB CHEMISTRY METHOD 01/13/2025 6:57 PM [facility] Creatinine 0.96 0.50 - 1.10 mg/dL LAB CHEMISTRY METHOD 01/13/2025 6:57 PM [facility] eGFR 77 >=60 mL/min/1. 73m2 LAB CHEMISTRY METHOD 01/13/2025 6:57 PM [facility] Comment:Calculation based on the Chronic Kidney Disease Epidemiology Collaboration (CKD-EPI) equation refit without adjustment for race. BUN/Creatinine Ratio 10.4 LAB CHEMISTRY METHOD 01/13/2025 6:57 PM [facility] Calcium 9.8 8.5 - 10.5 mg/dL LAB CHEMISTRY METHOD 01/13/2025 6:57 PM [facility] AST (SGOT) 32 10 - 42 unit/L LAB CHEMISTRY METHOD 01/13/2025 6:57 PM [facility] ALT (SGPT) 67(H) 10 - 60 unit/L LAB CHEMISTRY METHOD 01/13/2025 6:57 PM [facility] Alkaline Phosphatase 166(H) 42 - 121 unit/L LAB CHEMISTRY METHOD 01/13/2025 6:57 PM [facility] Total Protein 7.4 6.0 - 8.0 g/dL LAB CHEMISTRY METHOD 01/13/2025 6:57 PM [facility] Albumin 3.5 3.2 - 5.0 g/dL LAB CHEMISTRY METHOD 01/13/2025 6:57 PM EDT [facility] Total Bilirubin 0.2 0.0 - 1.4 mg/dL LAB CHEMISTRY METHOD 01/13/2025 6:57 PM EDT [facility] Blood Venous blood specimen / Unknown Venipuncture / Unknown 01/13/2025 5:47 PM EDT 01/13/2025 6:28 PM EDT Yg Rod MD LAB BLOOD ORDERABLES Final Result Performing Organization Address City/[facility]/ZIP Co de Phone Number [facility] [address] [place] [address], [place] [phone] * ECG 12 lead (01/13/2025 4:54 PM EDT) Ventricular Rate ECG 96 BPM GEMUSE Atrial Rate 96 BPM GEMUSE P-R Interval 136 ms GEMUSE QRS Duration 66 ms GEMUSE Q-T Interval 334 ms GEMUSE QTc 421 ms GEMUSE P Wave [place] 41 degrees GEMUSE R [place] 1 degrees GEMUSE T [place] 16 degrees GEMUSE ECG Interpretation Normal sinus rhythm Normal ECG When compared with ECG of 07-OCT-2024 00:27, No significant change was found Confirmed by MD Gokul, [place] ([id number]) on 01/15/2025 8:25:13 AM GEMUSE 01/13/2025 4:54 PM EDT 01/15/2025 8:25 AM EDT Yg Rod MD ECG ORDERABLES Final Resul t GEMUSE * Pap smear (08/31/2022) 08/31/2022 Narrative HISTORICAL TESTING LAB RESULTING AGENCY - 09/08/2022 4:55 PM EDT [id number] THINPREP PAP: NEGATIVE FOR SQUAMOUS INTRAEPITHELIAL LESION AND MALIGNANCY . SHIFT IN SIMON, SUGGESTIVE OF BACTERIAL VAGINOSIS. NOTE: THIS PAP TEST COULD NOT BE IMAGED UTILIZING THE IMAGING SYSTEM AND REQUIRED MANUAL REVIEW. LAILA ALVAREZ(ASCP) (CASE ELECTRONICALLY SIGNED 09 08 2022) RESULT OF APTIMA HIGH RISK HPV ASSAY: HIGH RISK HPV: NEGATIVE (SEROTYPES 16,18,31,33,35,39,45,51,52,56,58,59,66,68) COMPLETED ON 2022-09-01 ADEQUACY: SATISFACTORY ENDOCERVICAL/TRANSFORMATION ZONE COMPONENT PRESENT. SOURCE: THINPREP PAP HPV ANY DX: REFLEX 16 AND 18, CERVICAL CLINICAL INFORMATION: HPV ANY DIAGNOSIS. Z12.4 Mitali Wisdom CN LAB CYTOLOGY ORDERABLES Final R esult HISTORICAL TESTING LAB RESULTING AGENCY from Last 3 Months or Most Recently Relevant to Health Maintenance Insurance [facility] Care Teams Darklight Inspector Relationship Specialty Start Date End Date Portillo Lancaster PA [address] [place] [id number] PCP - General Internal Medicine 02/19/24
--- OUTSIDE RECORDS SUMMARY | 2025-01-24 16:00 | XMS_ITS | Clinical Summary ---
Author Organization [facility] Address [address] [place] [address] Phone Care Team Providers Care Staff Electrical Engineer Name Role Phone Unknown, Unknown Primary Care Provider Unavai lable Allergies Active Allergy Reactions Criticality Noted Date Comments Phenergan Dm Palpitations Low 06/13/2013 Medications No known medications Immunizations Immunization Administration Dates Next Due COVID-19 (Pre-01/23) Pfizer Vaccine, mRNA, PF 07/02/2020,07/02/2020,07/02/2020,2020,06/11/2020,06/11/2020 INFLUENZA, SPLIT VIRUS, TRIVALENT PF 01/24/2024 MMR 12/12/1996, 7,12/12/1996,1985,01/01/1986,01/01/1986 Td (adult),2 Lf Tetanus Toxo id, PF, Adsorbed 06/29/1999,06/29/1999,06/29/1999 Family History Medical History Relation Comments Hypertension Father Diabetes Mother Hypertension Mother Relation Status Comments Father Maternal Grandfather Maternal Grandmother Mother Alive Paternal Grandfather Paternal Grandmother Sister 1 Alive Sister 2 Alive Sister 3 Alive Sister 4 Alive Sister 5 Alive Social History Tobacco Use Types Packs/Day Years Used Date Smoking Tobacco: Never Smokeless Tobacco: Never Tobacco Cessation:Counseling Given: Not Answered Alcohol Use Standard Drinks/Week Comments Yes 0 (1 standard drink = 0.6 oz pur e alcohol) monthly Education Answer Date Recorded Are you interested in more education? Not on uma e 03/05/2024 Are you concerned about learning? Not on file 03/05/2024 No 03/05/2024 No 03/05/2024 Digital Access Answer Date Recorded No 03/05/2024 No 03/05/2024 Reliable internet access at home? Not on file 03/05/2024 Device with a working camera? Not on file Comments No Sex and Gender Information Value Date Recorded Sex Assigned at Not on file Legal Sex Female 12:49 PM EDT Gender Identity Not on file Sexual Orientation Not on file Last Filed Vital Signs Vital Sign Reading Time Taken Comments Blood Pressure 112/78 03/05/2024 1:52 PM EST Pulse - - Temperature - - Respiratory Rate - - Oxygen Saturation - - Inhaled Oxygen Concentration - - Weight 86.2 kg (190 lb) 03/05/2024 1:52 PM EST Height 157.5 cm (5' 2 ) 03/05/2024 1:52 PM EST Body Mass Index 34.75 03/05/2024 1:52 PM EST Plan of Treatment Health Maintenance Due Date Last Done Comments DEPRESSION SCREENING 1996 HEPATITIS C SCREENING 2002 HIV ONE-TIME SCREENING (18-65 YEARS) 2002 SCREENING FOR DIABETES 08/23/2019 Adult Td,Tdap Booster 10/01/2022 10/01/2012 , 06/29/1999, 06/29/1999, Additional history exists MAMMOGRAM 2024 INFLUENZA VACCINE (#1) 2024 01/24/2024 COVID-19 VACCINE ( season) 2024 07/02/2020, 07/02/2020, 07/02/2020, Additional history exists PAP SMEAR 08/31/2025 08/31/2022 SMOKING STATUS SCREENING (Once After 26 Yrs) Completed 03/05/2024 HEPATITIS A VACCINES Aged Out No long er eligible based on patient's age to complete this topic HIB VACCINES Aged Out No longer eligi ble based on patient's age to complete this topic MENINGOCOCCAL VACCINES (ACWY) Aged Out No longer eligible based on patient's age to complete this topic MENINGOCOCCAL VACCINES (B) Aged Out N o longer eligible based on patient's age to complete this topic PNEUMOCOCCAL VACCINES (0-49 years) Aged Out No longer eligible based on patient's age to complete this topic Medical Devices Not on file Insurance HMO O O O HMO HMO Care Teams Staff Electrical Engineer Relationship Specialty Start Date End Date Unknown, Unknown, PCP - General 03/05/24 Additional Source Comments The information contained in this document represents components of the legal health record. It is not the complete legal health record.[facility]
== END 2025-01-24 14:32 | disposition home or self-care (01) ==
LOC: HO.HMCFMS 13:57
PROVIDERS: PCP Student in an Organized Health Care Education/Training Program; Visit Provider Student in an Organized Health Care Education/Training Program
DX: M25.539 Pain in unspecified wrist (principal); I10 Essential (primary) hypertension; T14.90XA Injury, unspecified, initial encounter; G56.00 Carpal tunnel syndrome, unspecified upper limb

== ENCOUNTER → 2025-02-26 15:04 | Outpatient (AMB) | payer OTHER, SELFPAY ==
[2025-02-26 15:05] VITALS: BP 139/83; PULSE 90; TEMP 36.6; O2SAT 97; BMI 34.6
--- NOTE | 2025-02-26 15:05 | AM.OFFWIN_ITS ---
Intake Vital Signs 02/26/25 15:05 Height 5 ft 3.58 in Weight 199 lb BMI 34.6 BP 139/83 Blood Pressure Location Lt brachial Position Sitting Pulse 90 Pulse Source Pulse Oximeter Temp 97.9 F Temp Source Oral Pulse Oximetry (%) 97 Oxygen Delivery Method Room Air Intake Visit Reasons: EP- L knee Intake Note: EP complains of left knee pain and swelling for a week which is radiating down to her left foot (since yesterday). Patient Tobacco Use Status: Current everyday Tobacco user Allergies shrimp Allergy (Mild, Verified 02/26/25 15:17) Itching From Phenergan Adverse Reaction (Unknown, Uncoded 02/26/25 15:16) AGITATION, ANXIETY Do you need a note to return to daycare/school/sports/work: No HPI HPI Comments History of Present Illness Details History of Present Illness - The 39-year-old individual presents fo r evaluation of left knee pain. - The patient has a history of intermitt ent bilateral knee pain typically managed with a knee brace and leg elevation. - The current episode of left knee pain is more severe, persistent, and was aggravated after moving to a new apartment, which involved carrying heavy items. - The pain is now radiating down the ins christoph of her leg to her ankle, described as a shooting pain. - The pain is exacerbated by straighteni ng the leg after it has been in a flexed position. - Home care has included using a hot pac k, which provides some temporary relief. - The patient has taken Tylenol for the pain with limited benefit. - The patient denies experiencing any nu mbness or tingling or weakness Review of Systems - Musculoskeletal: Reports intermittent bilateral knee pain, currently worse in the left knee. - Reports shooting pain radiating down t he posterior left leg. - Reports pain with extension of the lef t knee after prolonged flexion. - Neurological: Denies numbness or tingl ing. All systems reviewed and are unremarkable except as noted in HPI Physical Exam General: Cooperative, healthy appearing, comfortable, no acute distress and well developed Orientation: Patient oriented x3 Limitations: ambulates normally Head: Normal to inspection Ears: Hearing grossly normal bilaterally Face and sinus: Normal facial exam Eyes: Appearance normal, both eyes and all related structures Neck: Normal visual inspection, full ROM Respiratory: Normal respiratory effort and able to speak in complete sentences. Skin: No rashes or lesions noted Neuro: Patient oriented x3, gait normal Extremities: Left knee with slight swelling vs right knee, TTP suprapatellar and medial left knee, slight medial joint laxity noted, negative anterior and posterior drawer test, negative valgus laxity, full ROM, negative patellar ballottment, no skin changes. Sensation intact, strength 5/5. left foot with sensation intact, strength 5/5 and full ROM of left foot PFSH Medical History (Updated 02/26/25 @ 15:39 by Silvina Vences PA-C) Pain, joint, forearm Migraines Family History (Updated 01/24/25 @ 14:09 by Sean Munson MA) Father High blood pressure Mother High blood pressure Diabetes Social History Housing: House Patient Tobacco Use Status: Current everyday Tobacco user service: No Current occupational status: employed Cognitive needs: No Hearing needs: No Vision needs: Yes (rx glasses) Review of Systems Const All systems reviewed & are unremarkable except as noted in HPI and below Physical Exam Vital Signs: Last Vital Signs Temp 97.9 F 02/26/25 15:05 Pulse 90 02/26/25 15:05 BP 139/83 02/26/25 15:05 Pulse Ox 97 02/26/25 15:05 Oxygen Delivery Method Room Air 02/26/25 15:05 BMI result Body Mass Index 34.6 Assessment & Plan Assessment & Plan (1) Right medial knee pain: Code(s): M25.561 - Pain in right knee Plan: Assessment and Plan - The patient's presentation of fsytt-fu-ohdfdxd knee pain following physical exertion, along with exam findings of mild swelling, localized tenderness, and medial ligamentous laxity, is consistent with an MCL ligament sprain. - The patient was advised to switch from Tylenol to Aleve, taken around the clock for 3-4 days then only as needed, for better anti-inflammatory effect. - A new, reinforced knee brace was provided for daytime use to offer support. - An X-ray of the left knee was ordered to rule out effusion or osseous pathology, although a significant effusion is clinically unlikely. - The patient was instructed to use ice on the knee to reduce inflammation. - Follow up if symptoms do not improve. Patient was informed and verbally consented to the use of an ambient scribe for clinic note documentation during this visit. (2) MCL sprain of left knee: Code(s): S83.412A - Sprain of medial collateral ligament of left knee, initial encounter Qualifiers: Encounter type: initial encounter Qualified Code(s): S83.412A - Sprain of medial collateral ligament of left knee, initial encounter Plan: see above Orders: Orders XR knee RT 3V Today M25.561 - Pain in right knee Coding Level of Care Code Est Pt Level 4 (24590) Diagnoses Right medial knee pain M25.561 Sprain of medial collateral ligament of left knee, initial encounter S83.412A Encounter type: initial encounter
--- OUTSIDE RECORDS SUMMARY | 2025-02-26 17:37 | XMS_ITS | Clinical Summary ---
Author Organization [facility] Address [address] [place] [address] Phone Care Team Providers Care Securities Research Analyst Name Role Phone Unknown, Unknown Primary Care [...] O O O HMO HMO Care Teams Securities Research Analyst Relationship Specialty Start Date End Date Unknown, Unknown, PCP - General 03/05/24 Additional Source Comments The information contained in this document represents components of the legal health record. It is not the complete legal health record.[facility]
--- OUTSIDE RECORDS SUMMARY | 2025-02-26 17:37 | XMS_ITS | Clinical Summary ---
Author Organization [facility] Address [address] [place] [address] Phone Care Team Providers Care Police Superintendent Name Role Phone Portillo Lancaster Primary Care Provider [phone] Allergies Active Allergy Reactions Criticality Noted Date Comments Phenergan Dm Palpitations 06/13/2013 Promethazine 08/31/2024 Shrimp Itching 09/29/2024 Medications cholecalciferol (VITAMIN D-3) 50 mcg (2,000 unit) tabletIndication s:Vitamin D deficiency Take 1 tablet (2,000 Units total) by mouth 1 (one) time each day. 90 tablet 1 09/30/2024 5 Active metoprolol succinate (TOPROL-XL) 25 mg 24 hr tablet Take 1 tablet (25 mg total) by mouth 1 (one) time each day. Do not crush or chew. 30 each 5 10/10/2024 6 Active Active Problems Problem Noted Date Diagnosed Date [...] Care Team Description 01/15/2025 Telephone Adult Medicine [id number] [place] [id number] Portillo Lancaster PA 01/13/2025 9:46 PM EDT - 01/13/2025 10:54 PM EDT Emergency [facility] Emergency [address] [place] [address] Yg Rod MD Chest wall [...] attack Father Frank Cochran Hypertension Father Frank Cochran Asthma Mother Jina Saurav sisters x2 Bipolar disorder Mother Jina Saurav Glaucoma Mother Jina Saurav Hypertension Mother Jina Saurav Hypertension Sister Marshamarisol Leoa Seizures Son Derepaco Van Relation Name Status Comments Father Vishnu Cochran Mother Jina Saurav Sister Marsha Cochran Son Derex Van Social History Tobacco Use Types Packs/Day Years [...] do you feel lonely or isolated from ose around you? Never 09/30/2024 Food Risk [...] for your loved ones. For example, child development director or elderly care for an older adult? 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 High Sensitivity Troponin I 6 <=54 ng/L LAB CHEMISTRY METHOD 01/13/2025 10:43 PM EDT [facility] Blood Venous blood specimen / Unknown Venipuncture / Unknown 01/13/2025 9:52 PM EDT 01/13/2025 10:03 PM EDT Narrative [facility] - 01/13/2025 10:43 PM EDT High levels of biotin in samples may falsely decrease hsTroponin values. Use caution when interpreting hsTroponin results in patients taking biotin who exhibit renal impairment (eGFR <60) or in patients taking more than 20 mg/day of biotin. Yg Rod MD LAB BLOOD ORDERABLES Final Result [facility] [address] [place] [address], * XR Chest 2 Views (01/13/2025 9:36 PM EDT) Anatomical Region Laterality Modality Body Radiographic Venita ging 01/14/2025 8:54 AM EDT Impressions 01/14/2025 8:55 AM EDT Impression: Normal chest. Teleblue MERCADO ([id number]) -------- FINAL REPORT -------- Dictated By: Chanda Apodaca Dictated Date: 01/14/2025 08:54 ET Assigned Physician: Chanda Apodaca Reviewed and Electronically Signed By: Chanda Apodaca Signed Date: 01/14/2025 08:55 ET Workstation ID: [id number] Transcribed By: Self Edit Transcribed Date: 01/14/2025 [...] clips arenoted. IMPRESSION: Impression: Normal chest. Telerad JESS ([id number]) -------- FINAL REPORT -------- Dictated By: Chanda Apodaca Dictated Date: 01/14/2025 08:54 ET Assigned Physician: Chanda Apodaca Reviewed and Electronically Signed By: Chanda Apodaca Signed Date: 01/14/2025 08:55 ET Workstation ID: [id number] Transcribed By: Self Edit Transcribed Date: 01/14/2025 08:54 ET us Yg Rod MD IMG XR PROCEDURES Final Res ult * (ABNORMAL) CBC auto differential (01/13/2025 5:47 PM EDT) WBC 9.2 4.8 - 10.8 K/mcL LAB HEMETOLOGY METHOD 01/13/2025 6:34 PM EDT [facility] RBC 4.70 3.80 - 4.80 M/mcL LAB HEMETOLOGY METHOD 01/13/2025 6:34 PM EDT [facility] Hemoglobin 13.6 11.5 - 16.0 g/dL LAB HEMETOLOGY METHOD 01/13/2025 6:34 PM EDT [facility] Hematocrit 42.8 35.0 - 47.0 % LAB HEMETOLOGY METHOD 01/13/2025 6:34 PM EDT [facility] MCV 90.5 79.0 - 98.0 FL LAB HEMETOLOGY METHOD 01/13/2025 6:34 PM EDT [facility] MCH 28.8 27.0 - 32.0 pcg LAB HEMETOLOGY METHOD 01/13/2025 6:34 PM EDT [facility] MCHC 31.8(L) 32.0 - 37.0 g/dL LAB HEMETOLOGY METHOD 01/13/2025 6:34 PM EDT [facility] RDW 12.9 11.0 - 15.0 % LAB HEMETOLOGY METHOD 01/13/2025 6:34 PM EDT [facility] Platelets 388 130 - 400 K/mcL LAB HEMETOLOGY METHOD 01/13/2025 6:34 PM EDT [facility] MPV 9.4 7.0 - 11.0 FL LAB HEMETOLOGY METHOD 01/13/2025 6:34 PM EDT [facility] NRBC 0.0 <1.0 % LAB HEMETOLOGY METHOD 01/13/2025 6:34 PM EDT [facility] NRBC Absolute 0.00 <0.10 K/mcL LAB HEMETOLOGY METHOD 01/13/2025 6:34 PM EDT [facility] Neutrophils Relative 55.4 % LAB HEMETOLOGY METHOD 01/13/2025 6:34 PM EDT [facility] Lymphocytes Relative 34.7 % LAB HEMETOLOGY METHOD 01/13/2025 6:34 PM EDT [facility] Monocytes Relative 6.9 % LAB HEMETOLOGY METHOD 01/13/2025 6:34 PM EDT [facility] Eosinophils Relative 2.0 % LAB HEMETOLOGY METHOD 01/13/2025 6:34 PM EDT [facility] Basophils Relative 0.7 % LAB HEMETOLOGY METHOD 01/13/2025 6:34 PM EDT [facility] Immature Granulocytes Relative 0.3 % LAB HEMETOLOGY METHOD 01/13/2025 6:34 PM EDT [facility] Neutrophils Absolute 5.10 1.50 - 7.00 K/mcL LAB HEMETOLOGY METHOD 01/13/2025 6:34 PM EDT [facility] Lymphocytes Absolute 3.19 1.00 - 5.00 K/mcL LAB HEMETOLOGY METHOD 01/13/2025 6:34 PM EDT [facility] Monocytes Absolute 0.63 0.20 - 1.00 K/mcL LAB HEMETOLOGY METHOD 01/13/2025 6:34 PM EDT [facility] Eosinophils Absolute 0.18 0.00 - 0.50 K/mcL LAB HEMETOLOGY METHOD 01/13/2025 6:34 PM EDT [facility] Basophils Absolute 0.06 0.00 - 0.20 K/mcL LAB HEMETOLOGY METHOD 01/13/2025 6:34 PM EDT [facility] Immature Granulocytes Absolute 0.03 0.00 - 0.03 K/mcL LAB HEMETOLOGY METHOD 01/13/2025 6:34 PM EDT [facility] Blood Venous blood specimen / Unknown Venipuncture / Unknown 01/13/2025 5:47 PM EDT 01/13/2025 6:28 PM EDT us Yg Rod MD LAB BLOOD ORDERABLES Final Result [facility] [address] [place] [address], * hCG, serum, qualitative (01/13/2025 5:47 PM EDT) [facility] hCG Qual Negative Negative 01/13/2025 7:06 PM EDT [facility] Blood Venous blood specimen / Unknown Venipuncture / Unknown 01/13/2025 5:47 PM EDT 01/13/2025 6:28 PM EDT us Yg Rod MD LAB BLOOD ORDERABLES Final Result [facility] [address] [place] [address], [place] [phone] * B-type natriuretic peptide (01/13/2025 5:47 PM EDT) [facility] BNP 2 <=100 pcg/mL LAB CHEMISTRY METHOD 01/13/2025 7:06 PM EDT [facility] Blood Venous blood specimen / Unknown Venipuncture / Unknown 01/13/2025 5:47 PM EDT 01/13/2025 6:28 PM EDT us Yg Rod MD LAB BLOOD ORDERABLES Final Result Performing Organization Address [facility]/ZIP Co de Phone Number [facility] [address] [place] [address], [place] [phone] * Magnesium (01/13/2025 5:47 PM EDT) [facility] Magnesium 2.0 1.9 - 2.6 mg/dL LAB CHEMISTRY METHOD 01/13/2025 6:57 PM EDT [facility] Blood Venous blood specimen / Unknown Venipuncture / Unknown 01/13/2025 5:47 PM EDT 01/13/2025 6:28 PM EDT us Yg Rod MD LAB BLOOD ORDERABLES Final Result Performing Organization Address City/[facility]/ZIP Co de Phone Number [facility] [address] [place] [address], [place] [phone] * Lipase (01/13/2025 5:47 PM EDT) [facility] Lipase 58 13 - 75 unit/L LAB CHEMISTRY METHOD 01/13/2025 6:57 PM EDT [facility] Blood Venous blood specimen / Unknown Venipuncture / Unknown 01/13/2025 5:47 PM EDT 01/13/2025 6:28 PM EDT Yg Rod MD LAB BLOOD ORDERABLES Final Result [facility] [address] [place] [address], [place] [phone] * (ABNORMAL) Comprehensive metabolic panel (01/13/2025 5:47 PM EDT) [facility] Sodium 140 133 - 145 mmol/L LAB CHEMISTRY [facility] Potassium 4.4 3.5 - 5.5 mmol/L LAB CHEMISTRY METHOD 01/13/2025 6:57 PM [facility] Chloride 106 96 - 110 mmol/L LAB CHEMISTRY METHOD 01/13/2025 6:57 PM [facility] CO2 25 21 - 32 mmol/L LAB CHEMISTRY METHOD 01/13/2025 6:57 PM [facility] Anion Gap 9 3 - 11 LAB CHEMISTRY METHOD 01/13/2025 6:57 PM [facility] Glucose 90 70 - 100 mg/dL LAB CHEMISTRY METHOD 01/13/2025 6:57 PM [facility] BUN 10 5 - 25 mg/dL LAB CHEMISTRY METHOD 01/13/2025 6:57 PM [facility] Creatinine 0.96 0.50 - 1.10 mg/dL LAB CHEMISTRY METHOD 01/13/2025 6:57 PM EDT [facility] eGFR 77 >=60 mL/min/1. 73m2 LAB CHEMISTRY METHOD 01/13/2025 6:57 PM T [facility] Comment:Calculation based on the Chronic Kidney Disease Epidemiology Collaboration (CKD-EPI) equation refit without adjustment for race. BUN/Creatinine Ratio 10.4 LAB CHEMISTRY METHOD 01/13/2025 6:57 PM T [facility] Calcium 9.8 8.5 - 10.5 mg/dL LAB CHEMISTRY METHOD 01/13/2025 6:57 PM [facility] AST (SGOT) 32 10 - 42 unit/L LAB CHEMISTRY METHOD 01/13/2025 6:57 PM [facility] ALT (SGPT) 67(H) 10 - 60 unit/L LAB CHEMISTRY METHOD 01/13/2025 6:57 PM [facility] Alkaline Phosphatase 166(H) 42 - 121 unit/L LAB CHEMISTRY METHOD 01/13/2025 6:57 PM [facility] Total Protein 7.4 6.0 - 8.0 g/dL LAB CHEMISTRY METHOD 01/13/2025 6:57 PM [facility] Albumin 3.5 3.2 - 5.0 g/dL LAB CHEMISTRY METHOD 01/13/2025 6:57 PM [facility] Total Bilirubin 0.2 0.0 - 1.4 mg/dL LAB CHEMISTRY METHOD 01/13/2025 6:57 PM [facility] Blood Venous blood specimen / Unknown Venipuncture / Unknown 01/13/2025 5:47 PM EDT 01/13/2025 6:28 PM EDT us Yg Rod MD LAB BLOOD ORDERABLES Final Result [facility] [address] [place] [address], * ECG 12 lead (01/13/2025 4:54 PM EDT) Ventricular Rate ECG 96 BPM GEMUSE Atrial Rate 96 BPM GEMUSE P-R Interval 136 ms GEMUSE QRS Duration 66 ms GEMUSE Q-T Interval 334 ms GEMUSE QTc 421 ms GEMUSE P Wave [place] 41 degrees GEMUSE R [place] 1 degrees GEMUSE T [place] 16 degrees GEMUSE ECG Interpretation Normal sinus rhythm Normal ECG When compared with ECG of 07-OCT-2024 00:27, No significant change was found Confirmed by MD Gokul, Aayush ([id number]) on 01/15/2025 8:25:13 AM GEMUSE 01/13/2025 4:54 PM EDT 01/15/2025 8:25 AM EDT us Yg Rod MD ECG ORDERABLES Final Resul t GEMUSE * Pap smear (08/31/2022) 08/31/2022 Narrative HISTORICAL TESTING LAB RESULTING AGENCY - 09/08/2022 4:55 PM EDT [id number] THINPREP PAP: NEGATIVE FOR SQUAMOUS INTRAEPITHELIAL LESION [...] CLINICAL INFORMATION: HPV ANY DIAGNOSIS. Z12.4 Mitali Elizakurt MARY LAB CYTOLOGY ORDERABLES Final R esult HISTORICAL TESTING LAB RESULTING AGENCY from Last 3 Months or Most Recently Relevant to Health Maintenance Insurance [facility] Care Teams Police Superintendent Relationship Specialty Start Date End Date Portillo Lancaster PA [address] [place] [id number] PCP - General Internal Medicine 02/19/24
== END ==
LOC: HO.HMCWIS 15:04
PROVIDERS: PCP Student in an Organized Health Care Education/Training Program; Visit Provider Physician Assistant
DX: M25.561 Pain in right knee (principal); S83.412A Sprain of medial collateral ligament of left knee, initial encounter

== ENCOUNTER 2025-03-07 14:43 | Outpatient (AMB) | payer OTHER, SELFPAY ==
--- NOTE | 2025-03-07 14:50 | MHC.OFFVIS ---
Intake Visit Reasons: Hypertension Intake Note: Patient is Allergies shrimp Allergy (Mild, Verified 02/26/25 15:17) Itching From Phenergan Adverse Reaction (Unknown, Uncoded 02/26/25 15:16) AGITATION, ANXIETY PFSH Medical History (Updated 02/26/25 @ 15:39 by Silvina Vences PA-C) Pain, joint, forearm Migraines Family History (Updated 01/24/25 @ 14:09 by Sean Munson MA) Father High blood pressure Mother High blood pressure Diabetes Social History Housing: House Patient Tobacco Use Status: Current everyday Tobacco user service: No Current occupational status: employed Cognitive needs: No Hearing needs: No Vision needs: Yes (rx glasses) Coding
--- NOTE | 2025-03-07 14:55 | A.OFFPC_ITS ---
Vital Signs 03/07/25 14:56 Height 5 ft 3.58 in Weight 188 lb BMI 32.7 BP 141/85 H Blood Pressure Location Lt brachial Position Sitting Respiration 18 Pulse 89 Pulse Source Pulse Oximeter Temp 98 F Temp Source Oral Pulse Oximetry (%) 99 Oxygen Delivery Method Room Air Intake Visit Reasons: Hypertension Intake Note: patient present to discuss hypertension. Accompanied by: Self / Same As Patient Allergies shrimp Allergy (Mild, Verified 03/07/25 14:55) Itching From Phenergan Adverse Reaction (Unknown, Uncoded 03/07/25 14:55) AGITATION, ANXIETY Medication List - Last Reconciled 03/07/25 by Demian Noriega MD sumatriptan succinate 50 mg PO Q2-4H PRN Tobacco use date assessed: 01/24/25 Dental Screening Dental Screen Date: 01/24/25 HPI HPI Comments History of Present Illness Details History of Present Illness The patient is a 39 year old female presenting for evaluation of headaches and concerns about her blood pressure. Migraine: The patient reports a history of migraines, which have occurred for the past two to three days and are not relieved by Excedrin. She describes the headaches as debilitating, often starting on the left side of her head and sometimes involving her entire head, associated with photophobia and nausea. Her previous primary care provider at [facility] had prescribed metoprolol for her migraines. She was also prescribed sumatriptan once but it was discontinued. The patient has a family history of migraines in her sisters and was previously referred to a neurologist but never received a call. Insomnia: The patient reports difficulty sleeping, characterized by a racing mind and waking up in the middle of the night. She occasionally takes melatonin but dislikes the feeling it causes. She has never had a sleep study. Chest Pain and Hypertension History: The patient has a history of presenting to the hospital for high blood pressure and stress-induced chest pain that radiates to her arm. During a prior visit, an EKG was performed and was normal, though a CT scan was considered to rule out a blood clot. Her prior PCP prescribed metoprolol, focusing on her blood pressure rather than her migraines. Currently, her home blood pressure readings are within normal limits. Dysmenorrhea: The patient reports her menstrual periods are regular but very painful. She also notes that she is a heavy bleeder at times. There is no family history of fibroids. Surgical History: - No prior surgical history discussed. Medications: - Excedrin as needed for headaches, repo rts it is no longer effective. - Melatonin occasionally for sleep, but she dislikes its effects. Social History: - Sleep: Reports experiencing insomnia c haracterized by a racing mind and waking in the middle of the night. Family History: - Migraines: Patient's sisters suffer fr om migraines. - Uterine Fibroids: Denies family histor y. Diagnostic Results: - Home Blood Pressure: Readings are with in normal limits. - EKG: A previous electrocardiogram perf ormed during a hospital visit for chest pain was normal. Past Medical History - Migraines, previously treated with met oprolol. - History of hospital visits for elevate d blood pressure and chest pain. - Anemia, noted on review of past medica l records. Health Maintenance - Comprehensive baseline labs will be or dered, including a complete blood count, comprehensive metabolic panel, hemoglobin A1c, hepatitis B and C, HIV, lipid panel, urine protein, TSH, vitamin B12, folate, and vitamin D. - An order for a screening mammogram joyce l be placed. - The patient was reassured that her blo od pressure is within normal limits and she does not require antihypertensive medication. COUNT INCLUDES [facility] Medical History (Updated 03/08/25 @ 13:06 by Demian Noriega MD) Dysmenorrhea Elevated blood pressure reading Insomnia Sleep disturbance Pain, joint, forearm Migraines Family History Father High blood pressure Mother High blood pressure Diabetes Social History (Updated 03/07/25 @ 14:56 by Cam Cochran CMA) Housing: House Alcohol intake: current Patient Tobacco Use Status: Current everyday Tobacco user e-Cigarette/Vaping Use: Never Used service: No Current occupational status: employed Cognitive needs: No Hearing needs: No Vision needs: Yes (rx glasses) Questionnaire PHQ-9 Over the last 2 weeks, how often have you been bothered by any of the following problems? 1. Little interest or pleasure in doing things: several days 2. Feeling down, depressed, or hopeless: several days 3. Trouble falling or staying asleep, or sleeping too much: nearly every day 4. Feeling tired or having little energy: more than half the days 5. Poor appetite or overeating: several days 6. Feeling bad about yourself - or that you are a failure or have let yourself or your family down: not at all 7. Trouble concentrating on things, such as reading the newspaper or watching television: several days 8. Moving or speaking so slowly that other people could have noticed. Or the opposite - being so fidgety or restless that you have been moving around a lot more than usual: not at all 9. Thoughts that you would be better off or of hurting yourself in some way: not at all Total score: 9 Source: Developed by Drs. Drew Flores, Anu Chapman, Roni Armando and colleagues, with an educational jose guadalupe from [employer]. Thrive Questionnaire Date Thrive assessed: 01/24/25 I am a: Patient What is your living situation today?: I have a steady place to live Within the past 12 months, did the food you bought not last and you didn't have the money to get more?: Never true Within the past 12 months, did you worry whether your food would run out before you got money to buy more?: Never true Do you have trouble paying for medicines?: No Do you have trouble getting transportation to medical appointments?: No Do you have trouble paying your heating and electricity bill?: No Do you have trouble taking care of your child, family member or friend?: No Do you have trouble with day-to-day activities such as bathing, preparing meals, shopping, managing finances, etc.?: No Are you currently unemployed and looking for a job?: No Are you interested in more education?: No Please select the resources that you would like help with: None Currently or been in a relationship where the following occur: No concerns reported THRIVE Score: 0 LEATHA-7 AMB Questionnaire LEATHA-7 Date LEATHA - 7 assessed: 01/24/25 Source: Developed by Drs. Drew Flores, Anu Chapman, Roni Armando and colleagues, with an educational jose guadalupe from [employer]. Review of Systems Narrative Review of Systems - Neurological: Reports frequent, debilitating headaches, sometimes localized to the left side, with associated photophobia. - Cardiovascular: Denies current chest pain but reports a history of stress- induced chest pain radiating to the arm. - Gastrointestinal: Reports nausea associated with headaches. - Genitourinary/Gynecological: Reports regular but painful menstrual periods, with occasional heavy bleeding. - Constitutional/Psychiatric: Reports difficulty sleeping with a racing mind. 10-point ROS reviewed and negative except as noted in HPI Physical exam (Primary Care) Vital Signs: Last Vital Signs Temp 98 F 03/07/25 14:56 Pulse 89 03/07/25 14:56 Resp 18 03/07/25 14:56 BP 141/85 H 03/07/25 14:56 Pulse Ox 99 03/07/25 14:56 Oxygen Delivery Method Room Air 03/07/25 14:56 BMI result Body Mass Index 32.7 Tobacco/Smoking Status: Tobacco use Status Tobacco use date assessed 01/24/25 03/07/25 14:58 Patient Tobacco Use Status Current everyday Tobacco 03/07/25 14:58 e-Cigarette/Vaping Use Never Used 03/07/25 14:58 PHQ-9: PHQ-9 Score PHQ-9: Total score 9 03/07/25 14:58 Thrive Assessment: Date of Thrive Assessment Date Thrive assessed 01/24/25 03/07/25 14:58 Currently or been in a relationship where the following occur: No concerns reported Narrative Physical Exam General: Well-appearing, in no acute distress. Vital signs: Blood pressure 128, within normal limits. HEENT: Normocephalic, atraumatic. PERRLA, EOMI. Conjunctiva clear, sclera anicteric. Oropharynx clear, mucous membranes moist. TMs intact bilaterally. Neck: Supple, no lymphadenopathy, no thyromegaly, no JVD or carotid bruits. Cardiovascular: RRR, normal S1/S2, no murmurs, rubs, or gallops. Peripheral pulses 2+ and symmetric. No edema. Respiratory: Lungs clear to auscultation bilaterally, no wheezes, rales, or rhonchi. Normal effort. Abdomen: Soft, non-tender, non-distended. Normoactive bowel sounds. No hepatosplenomegaly, no masses. MSK: Full range of motion, no joint swelling or deformity. Normal gait. Skin: Warm, dry, intact. No rashes, lesions, or pallor. Neuro: Alert and oriented x3. Cranial nerves II-XII intact. Strength 5/5 throug hout. Sensation intact. Reflexes 2+ symmetric. Normal coordination and gait. Psych: Appropriate mood and affect. Normal judgment and insight. Coding Level of Care Code Est Pt Level 3 (67539) Diagnoses Migraines G43.909 Insomnia G47.00 Elevated blood pressure reading R03.0 Dysmenorrhea N94.6 Sleep disturbance G47.9 Assessment & Plan Assessment & Plan (1) Migraines: Code(s): G43.909 - Migraine, unspecified, not intractable, without status migrainosus Category: Medical (2) Insomnia: Code(s): G47.00 - Insomnia, unspecified Category: Medical (3) Elevated blood pressure reading: Code(s): R03.0 - Elevated blood-pressure reading, without diagnosis of hypertension Category: Medical (4) Dysmenorrhea: Code(s): N94.6 - Dysmenorrhea, unspecified Category: Medical (5) Sleep disturbance: Code(s): G47.9 - Sleep disorder, unspecified Category: Medical Plan Consent The plan of care, including ordering baseline laboratory studies, a home sleep study, a screening mammogram, and prescribing sumatriptan for migraines, was discussed with the patient. She was agreeable to the plan and verbalized understanding. Patient was informed and verbally consented to the use of an ambient scribe for clinic note documentation during this visit. Plan 1. Migraine - Prescribed sumatriptan 50 mg for abortive therapy. - Patient instructed to take one tablet at the onset of a headache and may repeat one dose after two hours if there is no relief. - Referral to neurology is deferred to first assess response to sumatriptan. 2. Insomnia - A home sleep study will be ordered to evaluate for an underlying sleep disorder. Discussion Notes discussed with the patient that her symptoms are consistent with migraines. I explained the plan to prescribe sumatriptan 50 mg as an abortive treatment to be taken at the onset of a headache, with the option to repeat a dose in two hours if needed. We agreed to defer a neurology referral to first see how she responds to this medication. after reveiwing a week of at home bp measurement twice a day I reassured her that her blood pressure is normal and she does not require antihypertensive medication. I also explained the rationale for ordering comprehensive baseline bloodwork to obtain a full overview of her health. To address her sleep difficulties, I recommended a home sleep study, explaining that she would sampler pickup the equipment and return it without needing to stay overnight at a facility. Finally, I advised her she is due for a screening mammogram at age 39 and that I would place the order for her. The patient verbalized understanding and agreement with the entire plan. Patient Instructions - You have been prescribed Sumatriptan 50 mg for your migraines. - Take one tablet by mouth as soon as a headache starts. - If the headache does not improve after 2 hours, you may take a second tablet. - You do not need medication for high blood pressure at this time, as your blood pressure is normal. - Please go to a laboratory to have your blood drawn for the tests that were ordered. - You will be contacted to schedule a home sleep study; you will sampler pickup the equipment and return it after use. - An order has been placed for a screening mammogram. - Please follow up to review your test results and discuss how the migraine treatment is working. Medical Decision Making The patient is a 39-year-old female presenting with a primary complaint of debilitating headaches and concerns regarding her blood pressure. Her description of headaches, including unilateral onset, photophobia, and nausea, is classic for migraine, and she has a positive family history. Her current regimen of Excedrin is failing, prompting the need for prescription abortive therapy. Sumatriptan 50 mg was prescribed as it is an appropriate first-line triptan for acute migraine treatment. A neurology referral is deferred pending her response to this medication. Regarding her blood pressure, her home readings are normal, and she does not meet the criteria for a diagnosis of hypertension. Her prior use of metoprolol was likely for migraine prophylaxis rather than hypertension, and she requires no antihypertensive medication at this time. The patient was reassured accordingly. Her complaint of insomnia with a racing mind warrants further investigation for an underlying sleep disorder. A home sleep study is a low-risk, appropriate initial diagnostic step. As part of routine health maintenance for a 39-year-old female, comprehensive baseline labs and a screening mammogram were ordered to establish a health baseline and adhere to preventative care guidelines. Total Time Statement 20 min Total time spent caring for the patient today includes pre-visit chart review, documentation, review of laboratory and diagnostic imaging results, medication reconciliation, medically necessary evaluation, counseling on diagnoses, care coordination, ordering appropriate tests and medications, review of tests performed by other providers, reporting test results to the patient, and communication with other healthcare providers. Orders: Orders Syphilis Screen 03/07/25 Z13.9 - Encounter for screening, unspecified UA CC w/rflx Micro + Cult 03/07/25 Z13.9 - Encounter for screening, unspecified Lipid Panel 03/07/25 Z13.9 - Encounter for screening, unspecified Hemoglobin A1c 03/07/25 Z13.9 - Encounter for screening, unspecified Magnesium 03/07/25 Z13.9 - Encounter for screening, unspecified Vitamin D 1,25 dihydroxy 03/07/25 Z13.9 - Encounter for screening, unspecified Hepatitis B Surface Antibody 03/07/25 Z13.9 - Encounter for screening, unspecified Microalbumin, Random (w Creat) 03/07/25 Z13.9 - Encounter for screening, unspecified MM screening mammo BI 03/07/25 Z12.31 - Encounter for screening mammogram for malignant neoplasm of breast RT home sleep study 03/07/25 G47.00 - Insomnia, unspecified, G47.9 - Sleep disorder, unspecified Complete Blood Count Auto Diff 03/07/25 Z13.9 - Encounter for screening, unspecified Hepatitis B Surface Antigen 03/07/25 Z13.9 - Encounter for screening, unspecified Comprehensive Met. Panel 03/07/25 Z13.9 - Encounter for screening, unspecified Hepatitis C Antibody 03/07/25 Z13.9 - Encounter for screening, unspecified TSH reflex Free T4 03/07/25 Z13.9 - Encounter for screening, unspecified HIV Ab/Ag 03/07/25 Z13.9 - Encounter for screening, unspecified Vitamin B12 and Folate 03/07/25 Z13.9 - Encounter for screening, unspecified Medications: New sumatriptan succinate do not exceed 4 doses per 24 hrs 50 mg PO Q2-4H PRN 14 tabs 0RF migraine headache
[2025-03-07 14:56] VITALS: BP 141/85; PULSE 89; RESP 18; TEMP 36.6; O2SAT 99; BMI 32.7
--- OUTSIDE RECORDS SUMMARY | 2025-03-07 18:51 | XMS_ITS | Clinical Summary ---
Author Organization [facility] Address [address] [place] [address] Phone Care Team Providers Care Overlock Operator Name Role Phone Portillo Lancaster Primary Care Provider [phone] Allergies Active Allergy Reactions Criticality Noted Date [...] Care Team Description 01/15/2025 Telephone Adult Medicine [id number] [place] [id number] Portillo Lancaster PA 01/13/2025 9:46 PM EDT - 01/13/2025 10:54 PM EDT Emergency [facility] Emergency [address] [place] [address] Yg Rod MD Chest wall [...] care for your loved ones. For example, early childhood assistant or elderly care for an older adult? 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 Use caution when interpreting hsTroponin results in patients taking biotin who exhibit renal impairment (eGFR <60) or in patients taking more than 20 mg/day of biotin. Yg Rod MD LAB BLOOD ORDERABLES Final Result [facility] [address] [place] [address], * XR Chest 2 Views (01/13/2025 9:36 PM EDT) Anatomical Region Laterality Modality Body Radiographic Venita ging 01/14/2025 8:54 AM EDT Impressions 01/14/2025 8:55 AM EDT Impression: Normal chest. Teleblue MERCADO ([id number]) -------- FINAL REPORT -------- Dictated By: Chanda Apodaca Dictated Date: 01/14/2025 08:54 ET Assigned Physician: Chanda Apodaca Reviewed and Electronically Signed By: Chanda Apodaca Signed Date: 01/14/2025 08:55 ET Workstation ID: [id number] Transcribed By: Self Edit Transcribed Date: 01/14/2025 [...] arenoted. IMPRESSION: Impression: Normal chest. Telerad JESS ([id number]) -------- FINAL REPORT -------- Dictated By: Chanda Apodaca Dictated Date: 01/14/2025 08:54 ET Assigned Physician: Chanda Apodaca Reviewed and Electronically Signed By: Chanda Apodaca Signed Date: 01/14/2025 08:55 ET Workstation ID: [id number] Transcribed By: Self Edit Transcribed Date: 01/14/2025 08:54 ET us Yg Rod MD IMG XR PROCEDURES Final Res ult * (ABNORMAL) CBC auto differential (01/13/2025 5:47 PM EDT) WBC 9.2 4.8 - 10.8 K/mcL LAB HEMETOLOGY METHOD 01/13/2025 6:34 PM EDT [facility] RBC 4.70 3.80 - 4.80 M/mcL LAB HEMETOLOGY METHOD 01/13/2025 6:34 PM EDT [facility] Hemoglobin 13.6 11.5 - 16.0 g/dL LAB HEMETOLOGY METHOD 01/13/2025 6:34 PM EDT [facility] Hematocrit 42.8 35.0 - 47.0 % LAB HEMETOLOGY METHOD 01/13/2025 6:34 PM EDT [facility] MCV 90.5 79.0 - 98.0 FL LAB HEMETOLOGY METHOD 01/13/2025 6:34 PM EDT [facility] MCH 28.8 27.0 - 32.0 pcg LAB HEMETOLOGY METHOD 01/13/2025 6:34 PM EDT [facility] MCHC 31.8(L) 32.0 - 37.0 g/dL LAB HEMETOLOGY METHOD 01/13/2025 6:34 PM EDT [facility] RDW 12.9 11.0 - 15.0 % LAB HEMETOLOGY METHOD 01/13/2025 6:34 PM EDT [facility] Platelets 388 130 - 400 K/mcL LAB HEMETOLOGY METHOD 01/13/2025 6:34 PM EDT [facility] MPV 9.4 7.0 - 11.0 FL LAB HEMETOLOGY METHOD 01/13/2025 6:34 PM EDT [facility] NRBC 0.0 <1.0 % LAB HEMETOLOGY METHOD 01/13/2025 6:34 PM EDT [facility] NRBC Absolute 0.00 <0.10 K/mcL LAB HEMETOLOGY METHOD 01/13/2025 6:34 PM EDT [facility] Neutrophils Relative 55.4 % LAB HEMETOLOGY METHOD 01/13/2025 6:34 PM EDT [facility] Lymphocytes Relative 34.7 % LAB HEMETOLOGY METHOD 01/13/2025 6:34 PM EDT [facility] Monocytes Relative 6.9 % LAB HEMETOLOGY METHOD 01/13/2025 6:34 PM EDT [facility] Eosinophils Relative 2.0 % LAB HEMETOLOGY METHOD 01/13/2025 6:34 PM EDT [facility] Basophils Relative 0.7 % LAB HEMETOLOGY METHOD 01/13/2025 6:34 PM EDT [facility] Immature Granulocytes Relative 0.3 % LAB HEMETOLOGY METHOD 01/13/2025 6:34 PM EDT [facility] Neutrophils Absolute 5.10 1.50 - 7.00 K/mcL LAB HEMETOLOGY METHOD 01/13/2025 6:34 PM EDT [facility] Lymphocytes Absolute 3.19 1.00 - 5.00 K/mcL LAB HEMETOLOGY METHOD 01/13/2025 6:34 PM EDT [facility] Monocytes Absolute 0.63 0.20 - 1.00 K/mcL LAB HEMETOLOGY METHOD 01/13/2025 6:34 PM EDT [facility] Eosinophils Absolute 0.18 0.00 - 0.50 K/mcL LAB HEMETOLOGY METHOD 01/13/2025 6:34 PM EDT [facility] Basophils Absolute 0.06 0.00 - 0.20 K/mcL LAB HEMETOLOGY METHOD 01/13/2025 6:34 PM EDT [facility] Immature Granulocytes Absolute 0.03 0.00 - 0.03 K/mcL LAB HEMETOLOGY METHOD 01/13/2025 6:34 PM EDT [facility] Blood Venous blood specimen / Unknown Venipuncture / Unknown 01/13/2025 5:47 PM EDT 01/13/2025 6:28 PM EDT us Yg Rod MD LAB BLOOD ORDERABLES Final Result [facility] [address] [place] [address], * hCG, serum, qualitative (01/13/2025 5:47 PM EDT) [facility] hCG Qual Negative Negative 01/13/2025 7:06 PM EDT [facility] Blood Venous blood specimen / Unknown Venipuncture / Unknown 01/13/2025 5:47 PM EDT 01/13/2025 6:28 PM EDT us Yg Rod MD LAB BLOOD ORDERABLES Final Result [facility] [address] [place] [address], [place] [phone] * B-type natriuretic peptide (01/13/2025 5:47 PM EDT) [facility] BNP 2 <=100 pcg/mL LAB CHEMISTRY METHOD 01/13/2025 7:06 PM EDT [facility] Blood Venous blood specimen / Unknown Venipuncture / Unknown 01/13/2025 5:47 PM EDT 01/13/2025 6:28 PM EDT us Yg Rod MD LAB BLOOD ORDERABLES Final Result Performing Organization Address [facility]/ZIP Co de Phone Number [facility] [address] [place] [address], [place] [phone] * Magnesium (01/13/2025 5:47 PM EDT) [facility] Magnesium 2.0 1.9 - 2.6 mg/dL LAB CHEMISTRY METHOD 01/13/2025 6:57 PM EDT [facility] Blood Venous blood specimen / Unknown Venipuncture / Unknown 01/13/2025 5:47 PM EDT 01/13/2025 6:28 PM EDT us Yg Rod MD LAB BLOOD ORDERABLES Final Result Performing Organization Address City/[facility]/ZIP Co de Phone Number [facility] [address] [place] [address], [place] [phone] * Lipase (01/13/2025 5:47 PM EDT) [facility] Lipase 58 13 - 75 unit/L LAB CHEMISTRY METHOD 01/13/2025 6:57 PM EDT [facility] Blood Venous blood specimen / Unknown Venipuncture / Unknown 01/13/2025 5:47 PM EDT 01/13/2025 6:28 PM EDT Yg Rod MD LAB BLOOD ORDERABLES Final Result [facility] [address] [place] [address], [place] [phone] * (ABNORMAL) Comprehensive metabolic panel (01/13/2025 5:47 PM EDT) [facility] Sodium 140 133 - 145 mmol/L LAB CHE[facility]STR[facility] Potassium 4.4 3.5 - 5.5 mmol/L LAB CHEMISTRY METHOD 01/13/2025 6:57 PM [facility] Chloride 106 96 - 110 mmol/L LAB CHEMISTRY METHOD 01/13/2025 6:57 PM [facility] CO2 25 21 - 32 mmol/L LAB CHEMISTRY METHOD 01/13/2025 6:57 PM [facility] Anion Gap 9 3 - 11 LAB CHEMISTRY METHOD 01/13/2025 6:57 PM [facility] Glucose 90 70 - 100 mg/dL LAB CHEMISTRY METHOD 01/13/2025 6:57 PM [facility] BUN 10 5 - 25 mg/dL LAB CHEMISTRY METHOD 01/13/2025 6:57 PM [facility] Creatinine 0.96 0.50 - 1.10 mg/dL LAB CHEMISTRY METHOD 01/13/2025 6:57 PM EDT [facility] eGFR 77 >=60 mL/min/1. 73m2 LAB CHEMISTRY METHOD 01/13/2025 6:57 PM T [facility] Comment:Calculation based on the Chronic Kidney Disease Epidemiology Collaboration (CKD-EPI) equation refit without adjustment for race. BUN/Creatinine Ratio 10.4 LAB CHEMISTRY METHOD 01/13/2025 6:57 PM T [facility] Calcium 9.8 8.5 - 10.5 mg/dL LAB CHEMISTRY METHOD 01/13/2025 6:57 PM [facility] AST (SGOT) 32 10 - 42 unit/L LAB CHEMISTRY METHOD 01/13/2025 6:57 PM [facility] ALT (SGPT) 67(H) 10 - 60 unit/L LAB CHEMISTRY METHOD 01/13/2025 6:57 PM [facility] Alkaline Phosphatase 166(H) 42 - 121 unit/L LAB CHEMISTRY METHOD 01/13/2025 6:57 PM [facility] Total Protein 7.4 6.0 - 8.0 g/dL LAB CHEMISTRY METHOD 01/13/2025 6:57 PM [facility] Albumin 3.5 3.2 - 5.0 g/dL LAB CHEMISTRY METHOD 01/13/2025 6:57 PM [facility] Total Bilirubin 0.2 0.0 - 1.4 mg/dL LAB CHEMISTRY METHOD 01/13/2025 6:57 PM [facility] Blood Venous blood specimen / Unknown Venipuncture / Unknown 01/13/2025 5:47 PM EDT 01/13/2025 6:28 PM EDT us Yg Rod MD LAB BLOOD ORDERABLES Final Result [facility] [address] [place] [address], * ECG 12 lead (01/13/2025 4:54 PM EDT) Ventricular Rate ECG 96 BPM GEMUSE Atrial Rate 96 BPM GEMUSE P-R Interval 136 ms GEMUSE QRS Duration 66 ms GEMUSE Q-T Interval 334 ms GEMUSE QTc 421 ms GEMUSE P Wave [place] 41 degrees GEMUSE R [place] 1 degrees GEMUSE T [place] 16 degrees GEMUSE ECG Interpretation Normal sinus [...] RESULTING AGENCY - 09/08/2022 4:55 PM EDT [id number] THINPREP PAP: NEGATIVE FOR SQUAMOUS INTRAEPITHELIAL LESION [...] Most Recently Relevant to Health Maintenance Insurance [facility] Care Teams Overlock Operator Relationship Specialty Start Date End Date Portillo Lancaster PA [address] [place] [id number] PCP - General Internal Medicine 02/19/24
== END 2025-03-07 15:25 | disposition home or self-care (01) ==
LOC: HO.HMCFMS 14:43
PROVIDERS: PCP Student in an Organized Health Care Education/Training Program; Visit Provider Student in an Organized Health Care Education/Training Program
DX: G43.909 Migraine, unspecified, not intractable, without status migrainosus (principal); G47.00 Insomnia, unspecified; R03.0 Elevated blood-pressure reading, without diagnosis of hypertension; N94.6 Dysmenorrhea, unspecified; G47.9 Sleep disorder, unspecified